=== PATIENT | female | born 1955 | race African-American/Black ===

== ENCOUNTER 2018-03-14 09:56 | Inpatient (IN) ==
[2018-03-14] MEDS ORDERED: amLODIPine 10 MG Tablet PO ONE (10:21)
[2018-03-14] MEDS ORDERED: hydroCHLOROthiazide 25 MG Tablet PO ONE (10:28)
--- NOTE | 2018-03-14 10:36 | ED ---
HPI General Chief complaint: Hypertension Stated complaint: High BP/sugar Time Seen by Provider: 03/14/18 10:12 Source: patient and family Mode of arrival: wheelchair Limitations: no limitations History of Present Illness MD complaint: Headache Onset (ago): day(s) (3) Location: head (Vertex of the scalp) Radiation: non-radiation Quality: other (Pressure) Pain Consistency: constant Relieving factors: other (Aleve give some relief) Exacerbating factors: none Associated symptoms: nausea/vomiting and other (Weakness) Treatments prior to arrival: NSAID Related Data Home Medications Medication Instructions Recorded Confirmed aspirin [Aspirin Low Dose] 81 mg PO DAILY 03/14/18 03/14/18 atorvastatin 40 mg PO DAILY 03/14/18 03/14/18 insulin degludec [Tresiba 22 unit SUB-Q DAILY 03/14/18 03/14/18 FlexTouch U-100] Previous Rx's Medication Instructions Recorded amlodipine 10 mg PO DAILY #90 tab 03/14/18 azithromycin [Zithromax Z-Cornelio] See Label Instructions .ROUTE 03/14/18 .COMPLEX #6 tab hydrochlorothiazide 0 mg PO DAILY #90 cap 03/14/18 hydrochlorothiazide 25 mg PO DAILY #90 tab 03/14/18 losartan 50 mg PO DAILY #90 tab 03/14/18 losartan 100 mg PO DAILY #90 tab 03/14/18 Allergies Allergy/AdvReac Type Severity Reaction Status Date / Time povidone-iodine Allergy Severe HIVES,SWELLING Verified 03/14/18 10:03 AND ITCHING Review of Systems ROS: all other systems reviewed are negative [facility] Medical History Medical History Hypertension (Chronic) Diabetes (Chronic) Surgical History Surgical History No history of previous surgery (Acute) Social History Social History Substance History: No History of Abuse Second Hand Smoke Exposure: No Smoking Status: Never smoker Tobacco Type: Cigarettes How Often Do You Have a Drink Containing Alcohol: Monthly or less Recent Travel in [facility] within the Last 8 Weeks: No Recent Out of Country Travel within the Last 8 Weeks: No Immunization History Tetanus Immunization: <5 Years Tetanus Immunization Year if Known: 2016 Hx Influenza Vaccine This Season: Yes Exam Const General: cooperative, healthy appearing, comfortable, no acute distress, well developed and well groomed Orientation: alert, awake and oriented x3 Other: On direct confrontation, her neurological exam shows full and equal muscle strength. However, she requires her family's assistance to get out of the car, sit up, etc. HENMT Head: normal to inspection, normocephalic, atraumatic and scalp tenderness ( Tender at the vertex of the scalp) Eyes Alignment and Position: alignment normal Conjunctivae: conjunctivae normal Sclera: sclerae normal EOM: EOM intact bilaterally Neck Neck: normal visual inspection and full ROM Chest Chest: normal inspection of the chest Resp Effort & Inspection: normal respiratory effort and able to speak in complete sentences Cardio Rate: regular rate Rhythm: regular rhythm Heart Sounds: S1 normal and S2 normal Back/Spine/Pelvis Cervical Spine: cervical ROM normal Thoracic/Lumbar Spine: thoraco-lumbar ROM normal Skin General: no rashes or lesions noted, turgor normal and dry skin Neuro General: alert, awake, oriented x3, moves all extremities and CN's II-XI intact bilaterally Extrem General: normal to inspection and full ROM Psych Appearance: grossly normal Mental Status: mental status grossly normal Speech and Movement: speech and movement normal Mood: congruent mood Affect: normal affect Attitude: cooperative Thought Process: normal Thought Content: normal Judgment: judgment good Course Hospital Course: The patient was treated in the emergency department with Compazine and Benadryl for her headache and with HCTZ, losartan and amlodipine for her blood pressure. Her diastolic blood pressure has come down to about 100. The patient states that she feels well enough to go home. I have given her prescriptions for HCTZ , losartan and amlodipine. Initial Documented Vital Signs Temperature 97.8 F 03/14/18 09:57 Pulse Rate 92 H 03/14/18 09:57 Respiratory Rate 16 03/14/18 09:57 Blood Pressure 216/107 H 03/14/18 09:57 Pulse Oximetry 97 03/14/18 09:57 Last Documented Vital Signs Temperature 97.8 F 03/14/18 09:57 Pulse Rate 85 03/14/18 12:29 Respiratory Rate 16 03/14/18 12:29 Blood Pressure 223/103 H 03/14/18 12:29 Pulse Oximetry 987 H 03/14/18 10:22 Medical Decision Making MDM Narrative Medical decision making narrative: This is a patient with a history of hypertension and diabetes who has been noncompliant with her antihypertensive for the last couple of weeks who presents with chief complaint of weakness, headache and nausea/vomiting. Onset of symptoms was 3 days ago. Her neurological exam is intact. She has full and equal muscle strength. Yet, she has to be assisted from a lying to a sitting position for a lung exam. I suspect a component of secondary gain. However, the patient is hypertensive. I have ordered her usual antihypertensive medications. I am treating her headache with IV Compazine and Benadryl. I have ordered laboratory and radiographic studies to rule out hypertensive emergency. I will also give the patient a Z-Cornelio because of the radiologist interpretation of her chest x-ray. She is a very poor historian but does complain of weakness. Medical Screen Exam Complete: Yes Emergency Medical Condition: Yes Differential Diagnosis Differential Diagnosis: Differential diagnosis of headache includes but is not limited to migraine, muscle contraction headache, brain tumor, brain bleed Lab Data Lab results reviewed: Yes I reviewed the patient's lab results. Result diagrams: 03/14/18 10:43 03/14/18 10:43 Lab Results 03/14/18 03/14/18 03/14/18 Range/Units 10:11 10:43 10:43 CBC w Diff Auto diff final WBC 12.9 H (4.0-11.0) th/mm3 RBC 4.78 (4.00-5.30) mil/mm3 Hgb 14.8 (11.6-15.3) gm/dL POC Hgb (Calc) ND Hct 42.9 (35.0-46.0) % POC Hct ND MCV 89.8 (80.0-100.0) fL MCH 30.9 (27.0-34.0) pg MCHC 34.4 (32.0-36.0) % RDW 12.5 (11.6-17.2) % Plt Count 353 (150-450) th/mm3 MPV 8.6 (7.0-11.0) fL Neut % (Auto) 82.8 H (16.0-70.0) % Lymph % (Auto) 11.4 (9.0-44.0) % [place] % (Auto) 4.4 (0.0-8.0) % Eos % (Auto) 0.0 (0.0-4.0) % Baso % (Auto) 1.4 (0.0-2.0) % Neut # (Auto) 10.6 H (1.8-7.7) th/mm3 Lymph # (Auto) 1.5 (1.0-4.8) th/mm3 [place] # (Auto) 0.6 (0.0-0.9) th/mm3 Eos # (Auto) 0.0 (0.0-0.4) th/mm3 Baso # (Auto) 0.2 (0.0-0.2) th/mm3 WBC Differential . Differential Comment . POC Sodium 139 (137-144) mmol/L Sodium 139 (136-145) meq/L POC Potassium 4.4 (3.6-5.0) mmol/L Potassium 4.3 (3.5-5.1) meq/L POC Chloride 103 (102-111) mmol/L Chloride 103 (98-107) meq/L Carbon Dioxide 25.2 (21.0-32.0) meq/L Anion Gap 11 (5-15) meq/L POC BUN 31 H (5-21) mg/dL BUN 25 H (7-18) mg/dL Creatinine 1.39 H (0.50-1.00) mg/dL POC Creatinine 1.4 H (0.6-1.3) mg/dL Estimated GFR 47 L (>89) mL/min POC Glucose 174 H 185 H (68-110) mg/dl Random Glucose 181 H (74-106) mg/dL Calcium 9.5 (8.5-10.1) mg/dL Total Bilirubin 0.7 (0.2-1.0) mg/dL AST 55 H (15-37) U/L ALT 28 (10-53) U/L Alkaline Phosphatase 88 (45-117) U/L Troponin I Less than 0.02 L (0.02-0.05) ng/mL Total Protein 8.1 (6.4-8.2) g/dL Albumin 3.9 (3.4-5.0) g/dL Imaging Data Attestation: I personally reviewed and interpreted this imaging study as follows : Radiologist's impression: Chest X-Ray 03/14/18 10:22 CONCLUSION: Mild streaky right base parenchymal opacity. ECG Data EKG Prior to Arrival: No Attestation: I personally reviewed and interpreted this ECG as follows: (EKG shows a sinus rhythm with a rate of 82. No STT wave changes.) Discharge Plan Discharge Disposition Patient Disposition: 01 Discharge Home Discharge Condition Condition: Stable Discharge Order Discharge Orders: Discharge Order (Routine); Ordered 03/14/18 Ordered By: Ruba Mcqueen Discharge Details Diagnosis: Hypertension, Non-compliance Physicians Team ED Provider: Ruba Mcqueen Primary Care Provider: Shital Olson Rxs /Orders / Referrals /Forms Prescriptions: New amlodipine 10 mg tablet 10 mg PO DAILY Qty: 90 RF: 0 hydrochlorothiazide 25 mg tablet 25 mg PO DAILY Qty: 90 RF: 0 losartan 100 mg tablet 100 mg PO DAILY Qty: 90 RF: 0 azithromycin [Zithromax Z-Cornelio] 250 mg tablet See Label Instructions .ROUTE .COMPLEX Qty: 6 RF: 0 Continue losartan 50 mg Tablet 50 mg PO DAILY Qty: 90 RF: 0 hydrochlorothiazide 12.5 mg Capsule PO DAILY Qty: 90 RF: 0 No Action atorvastatin 40 mg Tablet 40 mg PO DAILY RF: 0 aspirin [Aspirin Low Dose] 81 mg Tablet,Delayed Release (Dr/Ec) 81 mg PO DAILY RF: 0 insulin degludec [Tresiba FlexTouch U-100] 100 unit/mL (3 mL) Insulin Pen 22 unit SUB-Q DAILY RF: 0 Discharge Instructions Patient Printed Instructions: Acute Headache (DC), Hypertension (ED) Discharge Interventions Interventions: Vital Signs Last Done: 03/14/18 10:21 Status ED Status: Ready for Discharge
--- NOTE | 2018-03-14 10:40 | XR ---
EXAM DATE: 03/14/2018 10:35 AM EDT AGE/SEX: 62 years / Female INDICATIONS: High blood pressure, weakness. CLINICAL DATA: This is the patient's initial encounter. Patient reports that signs and symptoms have been present for 3 days and indicates a pain score of 0/10. MEDICAL/SURGICAL HISTORY: Hypertension. Diabetes mellitus type II. None. COMPARISON: No prior exams available for comparison. FINDINGS: Minimal streaky parenchymal opacity at the right lung base. No evidence of effusion. Cardiac contours are satisfactory for technique and projection. CONCLUSION: Mild streaky right base parenchymal opacity. Electronically signed by: El Yoo MD 03/14/2018 10:39 AM EDT
[2018-03-14 10:48] LABS: Baso # (Auto) 0.2 th/mm3 (0.0-0.2); Baso % (Auto) 1.4 % (0.0-2.0); Hematocrit 42.9 % (35.0-46.0); Hemoglobin 14.8 gm/dL (11.6-15.3); Lymph # (Auto) 1.5 th/mm3 (1.0-4.8); Lymph % (Auto) 11.4 % (9.0-44.0); Mean Corpuscular HGB Conc 34.4 % (32.0-36.0); Mean Corpuscular Hemoglobin 30.9 pg (27.0-34.0); Mean Corpuscular Volume 89.8 fL (80.0-100.0); Mean Platelet Volume 8.6 fL (7.0-11.0); Mono # (Auto) 0.6 th/mm3 (0.0-0.9); Mono % (Auto) 4.4 % (0.0-8.0); Neut # (Auto) 10.6 th/mm3 (1.8-7.7); Neut % (Auto) 82.8 % (16.0-70.0); Platelet Count 353 th/mm3 (150-450); Red Blood Count 4.78 mil/mm3 (4.00-5.30); Red Cell Distribution Width 12.5 % (11.6-17.2); White Blood Count 12.9 th/mm3 (4.0-11.0)
[2018-03-14 12:02] LABS: Alanine Aminotransferase 28 U/L (10-53)
[2018-03-14 12:05] LABS: Alkaline Phosphatase 88 U/L (45-117); Total Protein 8.1 g/dL (6.4-8.2)
[2018-03-14 12:06] LABS: Albumin 3.9 g/dL (3.4-5.0); Anion Gap 11 meq/L (5-15); Aspartate Aminotransferase 55 U/L (15-37); Blood Urea Nitrogen 25 mg/dL (7-18); Calcium 9.5 mg/dL (8.5-10.1); Carbon Dioxide 25.2 meq/L (21.0-32.0); Chloride 103 meq/L (98-107); Glomerular Filtration Rate 47 mL/min (>89); Glucose,Random 181 mg/dL (74-106); Sodium 139 meq/L (136-145)
[2018-03-14 12:07] LABS: Potassium 4.3 meq/L (3.5-5.1)
[2018-03-14] MEDS ORDERED: Bisacodyl 10 MG Supp RECTAL PRN (13:49)
--- NOTE | 2018-03-14 17:10 | P.HP ---
History of Present Illness Service: Hospitalist Primary Care Physician: Shital Olson MD Chief Complaint: Headache, hypertension History of Present Illness: Ms. Pena is a pleasant 62 year old female with a history of hypertension who presented to the ED on 03/14/2018 due to 3 day duration of headache and some dizziness. Patient appears very drowsy because she took a Benadryl. However, she is able to give appropriate answers. She admits not taking any BP meds for about two weeks. She denies any chest pain, shortness of breath, fever, chills. Denies any changes in bowel or bladder habits. She was started on some of her home meds in the ED. PMH: Hypertension PSH: No major surgery in the past Social history: Does not smoke. Drinks socially. Family history: No family history of heart disease, Alzheimer's or Parkinson's. - Diagnosis (1) Hypertensive urgency Review of Systems All other systems reviewed negative except as stated in HPI [facility] - History History Provided By: Patient - Medical History Medical History: Medical History (Last Updated 03/14/18 @ 10:32 by Ruba Mcqueen) Hypertension Diabetes - Surgical History Surgical History: Surgical History (Last Updated 03/14/18 @ 10:21 by Kate Matos RN) No history of previous surgery - Tobacco History Second Hand Smoke Exposure: No Tobacco Use In Past 30 Days: No Smoking Status: Never smoker Tobacco Type: Cigarettes - Alcohol History How Often Do You Have a Drink Containing Alcohol: Monthly or less - Substance Use History Substance History: No History of Abuse - Travel History Recent Travel in the [place] Within the Last 8 Weeks: No Recent Travel Out of the Country Within the Last 8 Weeks: No - Immunization History Tetanus Immunization: <5 Years Tetanus Immunization Year if Known: 2016 Hx Influenza Vaccine This Season: Yes Medications and Allergies Active Medications: Active Medications Acetaminophen (Tylenol) 650 mg PO Q4H PRN PRN Reason: Headache, fever, pain 1-5 Al Hydroxide/Mg Hydroxide (Milk Of Magnesia Liq) 30 ml PO Q12H PRN PRN Reason: Mild Constipation Bisacodyl (Dulcolax Supp) 10 mg RECTAL DAILY PRN PRN Reason: SEVERE CONSITIPATION Nicardipine HCl 25 mg/ Sodium (Chloride) 260 mls @ 52 mls/hr IV.CONT TITRATE PRN; Protocol PRN Reason: Per Protocol Lactulose (Lactulose Liq) 30 ml PO DAILY PRN PRN Reason: SEVERE CONSITIPATION Levofloxacin (Levaquin) 750 mg PO Q2D@1100 LISS Ondansetron HCl (Zofran Inj) 4 mg IV.PUSH Q6H PRN PRN Reason: NAUSEA OR VOMITING Sennosides (Senokot) 17.2 mg PO Q12H PRN PRN Reason: Moderate Constipation Sodium Chloride (Ns Flush) 2 ml IV.FLUSH UNSCH PRN PRN Reason: FLUSH AFTER USING IV ACCESS Last Admin: 03/14/18 10:51 Dose: 2 ml Allergies Allergy/AdvReac Type Severity Reaction Status Date / Time povidone-iodine Allergy Severe HIVES,SWELLING Verified 03/14/18 10:03 AND ITCHING azithromycin Allergy Itching Verified 03/14/18 13:36 [From [employer]] Home Medications Medication Instructions Recorded Confirmed Type aspirin [Aspirin Low Dose] 81 mg PO DAILY 03/14/18 03/14/18 History atorvastatin 40 mg PO DAILY 03/14/18 03/14/18 History insulin degludec [Tresiba 22 unit SUB-Q DAILY 03/14/18 03/14/18 History FlexTouch U-100] Exam Vital signs: Vital Signs 03/14/18 09:57 03/14/18 10:21 03/14/18 10:22 Temperature 97.8 F Pulse Rate 92 H 87 85 Respiratory Rate 16 16 Blood Pressure 216/107 H 224/113 H Pulse Oximetry 97 98 987 H 03/14/18 11:38 03/14/18 12:29 03/14/18 12:57 Temperature Pulse Rate 85 86 Respiratory Rate 16 16 Blood Pressure 245/113 H 223/103 H 218/109 H Pulse Oximetry 96 03/14/18 15:00 03/14/18 15:03 03/14/18 15:11 Temperature Pulse Rate 90 90 Respiratory Rate 16 6 L 15 Blood Pressure 218/106 H 202/100 H Pulse Oximetry 97 03/14/18 15:57 03/14/18 16:00 Temperature Pulse Rate 86 84 Respiratory Rate 8 L 9 L Blood Pressure 221/117 H 228/95 H Pulse Oximetry 99 99 Intake & Output 03/13/18 03/14/18 03/14/18 18:59 06:59 18:59 Weight 63.8 kg Narrative: GENERAL: This is a well-nourished, well-developed patient, in no apparent distress. SKIN: No rashes, ecchymoses or lesions. Warm and dry. HEAD: Atraumatic. Normocephalic. No temporal or scalp tenderness. EYES: Pupils equal round and reactive. No injection or drainage. ENT: Nose without bleeding, purulent drainage or septal hematoma. Airway patent. NECK: Trachea midline. No lymphadenopathy. Supple, nontender, no meningeal signs. CARDIOVASCULAR: Regular rate and rhythm without murmurs, gallops, or rubs. No JVD. RESPIRATORY: Clear to auscultation. Breath sounds equal bilaterally. No wheezes , rales, or rhonchi. GASTROINTESTINAL: Abdomen soft, non-tender, nondistended. No guarding. MUSCULOSKELETAL: Extremities without clubbing, cyanosis, or edema. NEUROLOGICAL: Drowsy but wakes up on verbal commands. Cranial nerves II through XII intact. No focal neurological deficits. Normal speech. Results - Labs CBC & Chem 7: 03/14/18 10:43 03/14/18 10:43 Labs: Laboratory Results - last 24 hr 03/14/18 03/14/18 03/14/18 10:11 10:43 10:43 CBC w Diff Auto diff final WBC 12.9 H RBC 4.78 Hgb 14.8 POC Hgb (Calc) ND Hct 42.9 POC Hct ND MCV 89.8 MCH 30.9 MCHC 34.4 RDW 12.5 Plt Count 353 MPV 8.6 Neut % (Auto) 82.8 H Lymph % (Auto) 11.4 [place] % (Auto) 4.4 Eos % (Auto) 0.0 Baso % (Auto) 1.4 Neut # (Auto) 10.6 H Lymph # (Auto) 1.5 [place] # (Auto) 0.6 Eos # (Auto) 0.0 Baso # (Auto) 0.2 WBC Differential . Differential Comment . POC Sodium 139 Sodium 139 POC Potassium 4.4 Potassium 4.3 POC Chloride 103 Chloride 103 Carbon Dioxide 25.2 Anion Gap 11 POC BUN 31 H BUN 25 H Creatinine 1.39 H POC Creatinine 1.4 H Estimated GFR 47 L POC Glucose 174 H 185 H Random Glucose 181 H Calcium 9.5 Total Bilirubin 0.7 AST 55 H ALT 28 Alkaline Phosphatase 88 Troponin I Less than 0.02 L Total Protein 8.1 Albumin 3.9 - Imaging Impressions Chest X-Ray 03/14/18 10:22 CONCLUSION: Mild streaky right base parenchymal opacity. Caprini VTE Risk Assessment Caprini VTE Risk Assessment: No/Low Risk (score <= 1) Caprini Risk Assessment Model: Point Value = 1 Point Value = 2 Point Value = 3 Point Value = 5 Age 41-60 Minor surgery BMI > 25 kg/m2 Swollen legs Varicose veins or History of unexplained or recurrent spontaneous Oral contraceptives or hormone replacement Sepsis (< 1 month) Serious lung disease, including pneumonia (< 1 month) Abnormal pulmonary function Acute myocardial infarction Congestive heart failure (< 1 month) History of inflammatory bowel disease Medical patient at bed rest Age 61-74 Arthroscopic surgery Major open surgery (> 45 min) Laparoscopic surgery (> 45 min) Malignancy Confined to bed (> 72 hours) Immobilizing plaster cast Central venous access Age >= 75 History of VTE Family history of VTE Factor V Leiden Prothrombin [id number] Lupus anticoagulant Anticardiolipin antibodies Elevated serum homocysteine Heparin-induced thrombocytopenia Other congenital or acquired thrombophilia Stroke (< 1 month) Elective arthroplasty Hip, pelvis, or leg fracture Acute spinal cord injury (< 1 month) Prophylaxis Regimen: Total Risk Factor Score Risk Level Prophylaxis Regimen 0-1 Low Early ambulation 2 Moderate Order ONE of the following: *Sequential Compression Device (SCD) *Heparin 5000 units SQ BID 3-4 Higher Order ONE of the following medications: *Heparin 5000 units SQ TID *Enoxaparin/Lovenox 40 mg SQ daily (WT < 150 kg, CrCl > 30 mL/min) *Enoxaparin/Lovenox 30 mg SQ daily (WT < 150 kg, CrCl > 10-29 mL/min) *Enoxaparin/Lovenox 30 mg SQ BID (WT < 150 kg, CrCl > 30 mL/min) AND/OR *Sequential Compression Device (SCD) 5 or more Highest Order ONE of the following medications: *Heparin 5000 units SQ TID (Preferred with Epidurals) *Enoxaparin/Lovenox 40 mg SQ daily (WT < 150 kg, CrCl > 30 mL/min) *Enoxaparin/Lovenox 30 mg SQ daily (WT < 150 kg, CrCl > 10-29 mL/min) *Enoxaparin/Lovenox 30 mg SQ BID (WT < 150 kg, CrCl > 30 mL/min) AND *Sequential Compression Device (SCD) Assessment and Plan - Assessment (1) Hypertensive urgency Code(s): I16.0 - Hypertensive urgency Status: Acute - Plan Ms. Pena is a 62 year old female with a history of HTN who presents to the ED on 03/14/2018 due to 3 day duration of headache and some dizziness. She has not taken BP meds for two weeks. Hypertensive urgency - Patient's initial BP was in the 240s systolic. - ED started patient on her home medications. - BP decreased to around 200 systolic. However, it started to going up again - We will start patient on Nicardipine drip. - Resume home meds tomorrow as Nicardipine drip is weaned off. Acute kidney injury - Could also be CKD due to HTN, DM - Creatinine 1.39. Will repeat BMP. Diabetes mellitus - Patient takes Tresiba (Degludec). - Currently on sliding scale insulin. - She will likely need Levemir while she is in the hospital. Will start Levemir 10 u HS Possible right sided pneumonia - WBC 12.9. CXR shows right sided streaks. - Levaquin 750mg Q2Day X 3 dosages. Full code. SCDs.
[2018-03-14] MEDS: niCARdipine Inj 25 MG in Sodium Chlor 0.9% Inj 250 ML IV.CONT PRN ×3 (17:20→23:46)
[2018-03-14] MEDS: levoFLOXacin 750 MG Tablet PO SCH (17:20)
[2018-03-14] MEDS: Acetaminophen 325 MG Tablet PO PRN (17:51)
[2018-03-14] MEDS ORDERED: Dextrose 50% in Water 50 ML Vial IV.PUSH PRN (21:08)
--- NOTE | 2018-03-14 23:28 | ECG ---
Date Performed: 03/14/2018 Time Performed: 10:32:56 PTAGE: 62 years EKG: Sinus rhythm WITH SHORT OR INTERVAL BORDERLINE ECG PREVIOUS TRACING : 03/20/1994 08.06 Since the previous tracing, no significant change noted DOCTOR: Yoan Valentine Interpretating Date/Time 03/14/2018 23:27:10
[2018-03-15] MEDS: niCARdipine Inj 25 MG in Sodium Chlor 0.9% Inj 250 ML IV.CONT PRN ×6 (03:21→20:11)
[2018-03-15] MEDS: Insulin NovoLIN Regular Correctional Sugar Inj SQ SCH ×5 (03:34→21:25)
[2018-03-15 06:33] LABS: Baso % (Auto) 0.2 % (0.0-2.0); Eos % (Auto) 0.1 % (0.0-4.0); Hematocrit 39.6 % (35.0-46.0); Hemoglobin 13.1 gm/dL (11.6-15.3); Lymph # (Auto) 1.5 th/mm3 (1.0-4.8); Lymph % (Auto) 11.1 % (9.0-44.0); Mean Corpuscular HGB Conc 33.2 % (32.0-36.0); Mean Corpuscular Hemoglobin 30.5 pg (27.0-34.0); Mean Corpuscular Volume 92.1 fL (80.0-100.0); Mean Platelet Volume 8.9 fL (7.0-11.0); Mono # (Auto) 0.7 th/mm3 (0.0-0.9); Mono % (Auto) 4.9 % (0.0-8.0); Neut # (Auto) 11.3 th/mm3 (1.8-7.7); Neut % (Auto) 83.7 % (16.0-70.0); Platelet Count 295 th/mm3 (150-450); Red Blood Count 4.29 mil/mm3 (4.00-5.30); White Blood Count 13.5 th/mm3 (4.0-11.0)
[2018-03-15 06:37] LABS: Potassium 3.6 meq/L (3.5-5.1)
[2018-03-15 06:43] LABS: Calcium 8.7 mg/dL (8.5-10.1)
[2018-03-15 06:44] LABS: Carbon Dioxide 24.6 meq/L (21.0-32.0)
[2018-03-15] MEDS: Acetaminophen 325 MG Tablet PO PRN ×2 (08:53→21:38)
[2018-03-15] MEDS: Sod Chloride 0.9% Inj 1,000 ML IV.CONT SCH ×2 (12:10→23:12)
--- NOTE | 2018-03-15 12:13 | P.PNIM ---
Subjective Interval history: The pt said that she felt dizzy. She did not have any other acute complaints. Discussed with nursing. Physical Exam Vital signs: Vital Signs 03/14/18 12:29 03/14/18 12:57 03/14/18 15:00 Temperature Pulse Rate 85 86 Respiratory Rate 16 16 16 Blood Pressure 223/103 H 218/109 H 218/106 H Pulse Oximetry 96 03/14/18 15:03 03/14/18 15:11 03/14/18 15:57 Temperature Pulse Rate 90 90 86 Respiratory Rate 6 L 15 8 L Blood Pressure 202/100 H 221/117 H Pulse Oximetry 97 99 03/14/18 16:00 03/14/18 19:20 03/14/18 20:00 Temperature Pulse Rate 84 96 H Respiratory Rate 9 L 17 Blood Pressure 228/95 H 169/83 H Pulse Oximetry 99 97 98 03/15/18 00:00 03/15/18 04:00 03/15/18 07:00 Temperature 98.8 F 97.5 F L Pulse Rate 92 H 94 H 90 Respiratory Rate 17 23 17 Blood Pressure 144/66 H 139/65 160/80 H Pulse Oximetry 98 96 97 03/15/18 08:00 03/15/18 09:00 03/15/18 10:00 Temperature Pulse Rate 92 H 90 90 Respiratory Rate 11 L 6 L 21 Blood Pressure 138/63 159/78 H 162/74 H Pulse Oximetry 99 97 98 Intake & Output 03/14/18 03/15/18 03/15/18 18:59 06:59 18:59 Intake Total 480 / 480 760 / 760 Output Total 0 / 0 500 / 500 Balance 480 / 480 260 / 260 Weight 63.8 kg 65.8 kg Intake: IV 760 / 760 Cardene Inj 25 MG In NS Inj 250 760 / 760 ML @ 5 MG/HR 52 mls/hr IV.CONT TITRATE PRN Rx#:[id number] Oral 480 / 480 Output: Urine 0 / 0 500 / 500 Other: # Voids 0 Date of Last Bowel Movement 03/13/18 03/13/18 Narrative: GENERAL: This is a well-nourished, well-developed patient, appears weak. SKIN: No rashes, ecchymoses or lesions. Warm and dry. HEAD: Atraumatic. Normocephalic. No temporal or scalp tenderness. EYES: Pupils equal round and reactive. No injection or drainage. ENT: Nose without bleeding, purulent drainage or septal hematoma. Airway patent. NECK: Trachea midline. No lymphadenopathy. Supple, nontender, no meningeal signs. CARDIOVASCULAR: Regular rate and rhythm without murmurs, gallops, or rubs. No JVD. RESPIRATORY: Clear to auscultation. Breath sounds equal bilaterally. No wheezes , rales, or rhonchi. GASTROINTESTINAL: Abdomen soft, non-tender, nondistended. No guarding. MUSCULOSKELETAL: Extremities without clubbing, cyanosis, or edema. NEUROLOGICAL: Cranial nerves II through XII intact. No focal neurological deficits. Normal speech. Results - Labs CBC & Chem 7: 03/15/18 04:40 03/15/18 04:40 Laboratory Results - last 24 hr 03/14/18 03/14/18 03/15/18 10:43 20:58 03:14 CBC w Diff WBC RBC Hgb Hct MCV MCH MCHC RDW Plt Count MPV Neut % (Auto) Lymph % (Auto) [place] % (Auto) Eos % (Auto) Baso % (Auto) Neut # (Auto) Lymph # (Auto) [place] # (Auto) Eos # (Auto) Baso # (Auto) WBC Differential Differential Comment Sodium 139 Potassium 4.3 Chloride 103 Carbon Dioxide 25.2 Anion Gap 11 BUN 25 H Creatinine 1.39 H Estimated GFR 47 L POC Glucose 229 H 213 H Random Glucose 181 H Calcium 9.5 Total Bilirubin 0.7 AST 55 H Alkaline Phosphatase 88 Troponin I Less than 0.02 L Total Protein 8.1 Albumin 3.9 03/15/18 03/15/18 03/15/18 04:40 04:40 08:23 CBC w Diff Auto diff final WBC 13.5 H RBC 4.29 Hgb 13.1 Hct 39.6 MCV 92.1 MCH 30.5 MCHC 33.2 RDW 12.0 Plt Count 295 MPV 8.9 Neut % (Auto) 83.7 H Lymph % (Auto) 11.1 [place] % (Auto) 4.9 Eos % (Auto) 0.1 Baso % (Auto) 0.2 Neut # (Auto) 11.3 H Lymph # (Auto) 1.5 [place] # (Auto) 0.7 Eos # (Auto) 0.0 Baso # (Auto) 0.0 WBC Differential . Differential Comment . Sodium 137 Potassium 3.6 Chloride 100 Carbon Dioxide 24.6 Anion Gap 12 BUN 32 H Creatinine 1.80 H Estimated GFR 35 L POC Glucose 229 H Random Glucose 229 H Calcium 8.7 D Total Bilirubin AST Alkaline Phosphatase Troponin I Total Protein Albumin Assessment and Plan - Assessment (1) Hypertensive urgency Code(s): I16.0 - Hypertensive urgency Status: Acute - Plan Ms. Pena is a 62 year old female with a history of HTN who presents to the ED on 03/14/2018 due to 3 days duration of headache and some dizziness. She has not taken BP meds for two weeks. Hypertensive urgency - Patient's initial BP was in the 240s systolic. - ED started patient on her home medications. - We started the patient on a nicardipine drip. -Resume amlodipine 10 mg daily. Add labetalol 100 mg BID. Titrate as needed. -wean off Cardene gtt as tolerated. Dizziness Likely s/t above. -treatment as above. -PT/OT evals. Acute kidney injury - Could also be acute on CKD due to HTN, DM -IVFs. -avoid nephrotoxins. -hold ARB and HCTZ. Diabetes mellitus - Patient takes Tresiba (Degludec). - Currently on sliding scale insulin. - She will likely need Levemir while she is in the hospital. Will start Levemir 10 u HS Possible right sided pneumonia - WBC 12.9. CXR shows right sided streaky opacity. - Levaquin 750mg Q2Day X 3 dosages. -check a UA and repeat CXR in AM. PPx: SCDs
[2018-03-15] MEDS: Labetalol 100 MG Tablet PO SCH ×2 (12:17→21:30)
[2018-03-15] MEDS: amLODIPine 10 MG Tablet PO SCH (12:19)
[2018-03-15 18:49] LABS: Bilirubin,Urine Negative (Negative); Clarity,Urine Slightly Cloudy (Clear); Color,Urine Yellow (Yellw/Straw); Glucose,Urine (UA) Negative (Negative); Leukocyte Esterase,Urine Negative (Negative); Nitrite,Urine Negative (Negative); PH,Urine 5.5 (5.0-8.5); Specific Gravity,Urine Greater/Equal 1.030 (1.002-1.035); Urobilinogen,Urine 0.2 mg/dL (Less than 2)
[2018-03-15 18:57] LABS: Amorphous Sediment,Urine Moderate /hpf; Squamous Epithelial Cell,Urine 0-5 /hpf (0-5)
[2018-03-15] MEDS: Insulin Detemir Inj 1,000 UNIT/10 ML Vial SQ SCH (21:25)
[2018-03-16] MEDS: Insulin NovoLIN Regular Correctional Sugar Inj SQ SCH ×5 (03:29→20:47)
[2018-03-16 05:30] LABS: Baso # (Auto) 0.1 th/mm3 (0.0-0.2); Baso % (Auto) 0.5 % (0.0-2.0); Hematocrit 39.2 % (35.0-46.0); Hemoglobin 13.1 gm/dL (11.6-15.3); Lymph # (Auto) 1.2 th/mm3 (1.0-4.8); Lymph % (Auto) 7.5 % (9.0-44.0); Mean Corpuscular HGB Conc 33.4 % (32.0-36.0); Mean Corpuscular Hemoglobin 30.6 pg (27.0-34.0); Mean Corpuscular Volume 91.4 fL (80.0-100.0); Mean Platelet Volume 8.3 fL (7.0-11.0); Mono # (Auto) 0.3 th/mm3 (0.0-0.9); Neut # (Auto) 13.8 th/mm3 (1.8-7.7); Platelet Count 306 th/mm3 (150-450); Red Blood Count 4.29 mil/mm3 (4.00-5.30); White Blood Count 15.4 th/mm3 (4.0-11.0)
[2018-03-16 05:39] LABS: Potassium 3.7 meq/L (3.5-5.1)
[2018-03-16 05:42] LABS: Calcium 8.7 mg/dL (8.5-10.1); Carbon Dioxide 23.8 meq/L (21.0-32.0); Magnesium 2.1 mg/dL (1.5-2.5)
--- NOTE | 2018-03-16 06:24 | XR ---
EXAM DATE: 03/16/2018 6:16 AM EDT AGE/SEX: 62 years / Female INDICATIONS: Shortness of breath CLINICAL DATA: This is the patient's subsequent encounter. Patient reports that signs and symptoms h ave been present for 2 days and indicates a pain score of 0/10. MEDICAL/SURGICAL HISTORY: Hypertension. Diabetes mellitus type II. None. COMPARISON: HPO, CHEST 1V SINGLE AP, 03/14/2018. . FINDINGS: A single AP view of the chest demonstrates the lungs to be symmetrically aerated without evidence of mass, infiltrate or effusion. Stable linear atelectasis or scarring at the right lung base. The card iomediastinal contours are unremarkable. Osseous structures are intact. CONCLUSION: The lungs are clear. Electronically signed by: Shaun Troncoso MD 03/16/2018 6:23 AM EDT
[2018-03-16] MEDS: Labetalol 100 MG Tablet PO SCH (08:11)
[2018-03-16] MEDS: amLODIPine 10 MG Tablet PO SCH (08:11)
[2018-03-16] MEDS ORDERED: Labetalol 100 MG Tablet PO ONE (11:18)
--- NOTE | 2018-03-16 12:19 | P.PNIM ---
Subjective Interval history: The pt said that she felt weak in the legs. She was still dizzy. She says she lives with her son. Discussed with nursing. Physical Exam Vital signs: Vital Signs 03/15/18 12:36 03/15/18 13:00 03/15/18 13:05 Temperature Pulse Rate 96 H 94 H Respiratory Rate 25 H 19 Blood Pressure 165/75 H Pulse Oximetry 99 99 100 03/15/18 13:07 03/15/18 14:00 03/15/18 15:00 Temperature Pulse Rate 86 86 Respiratory Rate 17 23 Blood Pressure 133/85 Pulse Oximetry 03/15/18 15:45 03/15/18 16:00 03/15/18 17:00 Temperature Pulse Rate 86 84 80 Respiratory Rate 16 12 8 L Blood Pressure 157/78 H Pulse Oximetry 03/15/18 17:01 03/15/18 17:30 03/15/18 18:00 Temperature Pulse Rate 80 80 80 Respiratory Rate 13 14 Blood Pressure 151/75 H 158/73 H Pulse Oximetry 03/15/18 18:18 03/15/18 19:10 03/15/18 20:00 Temperature Pulse Rate 80 70 Respiratory Rate 20 16 Blood Pressure 148/70 H 141/70 H Pulse Oximetry 99 03/15/18 20:17 03/15/18 20:30 03/15/18 20:45 Temperature 97.5 F L Pulse Rate 74 74 74 Respiratory Rate 17 16 18 Blood Pressure 148/70 H 151/72 H 149/71 H Pulse Oximetry 03/15/18 21:00 03/15/18 21:15 03/15/18 21:30 Temperature Pulse Rate 78 74 82 Respiratory Rate 17 20 25 H Blood Pressure 138/69 148/66 H 153/73 H Pulse Oximetry 03/15/18 21:45 03/15/18 22:00 03/15/18 22:15 Temperature Pulse Rate 80 78 74 Respiratory Rate 23 21 14 Blood Pressure 149/75 H 151/85 H Pulse Oximetry 03/15/18 22:30 03/15/18 22:45 03/15/18 23:00 Temperature Pulse Rate 74 70 68 Respiratory Rate 18 20 19 Blood Pressure 151/81 H 144/76 H 134/76 Pulse Oximetry 03/15/18 23:05 03/15/18 23:15 03/15/18 23:30 Temperature Pulse Rate 68 68 68 Respiratory Rate 18 17 17 Blood Pressure 128/76 139/74 141/75 H Pulse Oximetry 03/16/18 00:00 03/16/18 00:30 03/16/18 01:00 Temperature Pulse Rate 74 68 68 Respiratory Rate 12 14 14 Blood Pressure 137/69 143/64 H 135/63 Pulse Oximetry 03/16/18 02:00 03/16/18 03:00 03/16/18 04:00 Temperature 98.7 F Pulse Rate 72 70 72 Respiratory Rate 15 15 19 Blood Pressure 144/62 H 149/72 H 142/79 H Pulse Oximetry 03/16/18 05:00 03/16/18 05:41 03/16/18 06:00 Temperature Pulse Rate 78 78 74 Respiratory Rate 22 13 17 Blood Pressure 154/79 H 157/75 H 158/72 H Pulse Oximetry 100 03/16/18 07:00 03/16/18 07:38 03/16/18 07:59 Temperature Pulse Rate 74 74 76 Respiratory Rate 18 14 20 Blood Pressure 171/81 H 159/75 H Pulse Oximetry 03/16/18 08:00 03/16/18 08:59 03/16/18 09:00 Temperature 97.8 F Pulse Rate 78 70 74 Respiratory Rate 28 H 34 H 25 H Blood Pressure 162/80 H Pulse Oximetry 03/16/18 09:59 03/16/18 10:00 Temperature Pulse Rate 70 70 Respiratory Rate 20 22 Blood Pressure 157/73 H Pulse Oximetry Intake & Output 03/15/18 03/16/18 03/16/18 18:59 06:59 18:59 Intake Total 1240 / 1240 1380 / 1380 1260 / 1260 Output Total 450 / 450 Balance 1240 / 1240 930 / 930 1260 / 1260 Weight 69.2 kg Intake: IV 520 / 520 1260 / 1260 1260 / 1260 NS Inj 1,000 ML @ 100 mls/hr IV 1000 / 1000 1000 / 1000 .CONT .Q10H LISS Rx#:[id number] Cardene Inj 25 MG In NS Inj 250 520 / 520 260 / 260 260 / 260 ML @ 5 MG/HR 52 mls/hr IV.CONT TITRATE PRN Rx#:[id number] Oral 720 / 720 120 / 120 Output: Urine Amount (Catheter) 450 / 450 Indwelling Urethral Catheter 450 / 450 Other: Bladder Irrigation Fluid - Amount Drained Indwelling Urethral Catheter 650 Date of Last Bowel Movement 03/13/18 03/13/18 03/13/18 # Bowel Movements 0 Narrative: GENERAL: This is a well-nourished, well-developed patient, appears weak. SKIN: No rashes, ecchymoses or lesions. Warm and dry. HEAD: Atraumatic. Normocephalic. No temporal or scalp tenderness. EYES: Pupils equal round and reactive. No injection or drainage. ENT: Nose without bleeding, purulent drainage or septal hematoma. Airway patent. NECK: Trachea midline. No lymphadenopathy. Supple, nontender, no meningeal signs. CARDIOVASCULAR: Regular rate and rhythm without murmurs, gallops, or rubs. No JVD. RESPIRATORY: Clear to auscultation. Breath sounds equal bilaterally. No wheezes , rales, or rhonchi. GASTROINTESTINAL: Abdomen soft, non-tender, nondistended. No guarding. MUSCULOSKELETAL: Extremities without clubbing, cyanosis, or edema. NEUROLOGICAL: Cranial nerves II through XII intact. Symmetrical weakness in lower extremities. - Urinary Catheter Management Indwelling Urethral Catheter Cath placed during this visit: no Reason for continuing: Acute urinary retention Results - Labs CBC & Chem 7: 03/16/18 05:15 03/16/18 05:15 Laboratory Results - last 24 hr 03/15/18 03/15/18 03/15/18 12:03 18:00 18:22 CBC w Diff WBC RBC Hgb Hct MCV MCH MCHC RDW Plt Count MPV Neut % (Auto) Lymph % (Auto) [place] % (Auto) Eos % (Auto) Baso % (Auto) Neut # (Auto) Lymph # (Auto) [place] # (Auto) Eos # (Auto) Baso # (Auto) WBC Differential Differential Comment Sodium Potassium Chloride Carbon Dioxide Anion Gap BUN Creatinine Estimated GFR POC Glucose 270 H 183 H Random Glucose Calcium Magnesium Troponin I Urine Color Yellow Urine Clarity Slightly cloudy Urine pH 5.5 Ur Specific Hext Greater/equal 1.030 Urine Protein 100 H Urine Glucose (UA) Negative Urine Ketones Negative Urine Occult Blood Trace Urine Nitrate Negative Urine Bilirubin Negative Urine Urobilinogen 0.2 Ur Leukocyte Esterase Negative Ur Squamous Epith Cells 0-5 Amorphous Sediment Moderate H Micro UA Comment Cath-culture not ind Ur Microscopic Review Not Reportable Urine Culture Comments Cath-cult not ind 03/15/18 03/16/18 03/16/18 20:49 03:25 05:15 CBC w Diff Auto diff final WBC 15.4 H RBC 4.29 Hgb 13.1 Hct 39.2 MCV 91.4 MCH 30.6 MCHC 33.4 RDW 12.0 Plt Count 306 MPV 8.3 Neut % (Auto) 90.0 H Lymph % (Auto) 7.5 L [place] % (Auto) 2.0 Eos % (Auto) 0.0 Baso % (Auto) 0.5 Neut # (Auto) 13.8 H Lymph # (Auto) 1.2 [place] # (Auto) 0.3 Eos # (Auto) 0.0 Baso # (Auto) 0.1 WBC Differential . Differential Comment . Sodium Potassium Chloride Carbon Dioxide Anion Gap BUN Creatinine Estimated GFR POC Glucose 203 H 231 H Random Glucose Calcium Magnesium Troponin I Urine Color Urine Clarity Urine pH Ur Specific Hext Urine Protein Urine Glucose (UA) Urine Ketones Urine Occult Blood Urine Nitrate Urine Bilirubin Urine Urobilinogen Ur Leukocyte Esterase Ur Squamous Epith Cells Amorphous Sediment Micro UA Comment Ur Microscopic Review Urine Culture Comments 03/16/18 03/16/18 03/16/18 05:15 05:15 08:21 CBC w Diff WBC RBC Hgb Hct MCV MCH MCHC RDW Plt Count MPV Neut % (Auto) Lymph % (Auto) [place] % (Auto) Eos % (Auto) Baso % (Auto) Neut # (Auto) Lymph # (Auto) [place] # (Auto) Eos # (Auto) Baso # (Auto) WBC Differential Differential Comment Sodium 136 Potassium 3.7 Chloride 102 Carbon Dioxide 23.8 Anion Gap 10 BUN 29 H Creatinine 1.60 H Estimated GFR 40 L POC Glucose 171 H Random Glucose 217 H Calcium 8.7 Magnesium 2.1 Troponin I 0.03 Urine Color Urine Clarity Urine pH Ur Specific Hext Urine Protein Urine Glucose (UA) Urine Ketones Urine Occult Blood Urine Nitrate Urine Bilirubin Urine Urobilinogen Ur Leukocyte Esterase Ur Squamous Epith Cells Amorphous Sediment Micro UA Comment Ur Microscopic Review Urine Culture Comments - Imaging Impressions Chest X-Ray 03/16/18 06:00 CONCLUSION: The lungs are clear. Assessment and Plan - Assessment (1) Hypertensive urgency Code(s): I16.0 - Hypertensive urgency Status: Acute - Plan Ms. Pena is a 62 year old female with a history of HTN who presents to the ED on 03/14/2018 due to 3 days duration of headache and some dizziness. She has not taken BP meds for two weeks. Hypertensive urgency Improved. - Patient's initial BP was in the 240s systolic. -Resume amlodipine 10 mg daily. Increase labetalol to 200 mg BID. Titrate as needed. -d/c Cardene gtt. Dizziness Likely s/t above. -treatment as above. -PT/OT evals. Acute kidney injury - Could also be acute on CKD due to HTN, DM -IVFs. -avoid nephrotoxins. -hold ARB and HCTZ. Diabetes mellitus - Patient takes Tresiba (Degludec). - Currently on sliding scale insulin. -Will start Levemir 10 u HS. Possible right sided pneumonia Repeat CXR unremarkable. UA negative. - WBC 12.9. CXR shows right sided streaky opacity. - Levaquin 750mg Q2Day X 3 dosages. PPx: SCDs
[2018-03-16] MEDS: levoFLOXacin 750 MG Tablet PO SCH (12:51)
[2018-03-16] MEDS: Sod Chloride 0.9% Inj 1,000 ML IV.CONT SCH ×2 (12:51→21:51)
[2018-03-16] MEDS: Acetaminophen 325 MG Tablet PO PRN (15:51)
--- NOTE | 2018-03-16 16:42 | CT ---
EXAM DATE: 03/16/2018 4:34 PM EDT AGE/SEX: 62 years / Female INDICATIONS: Altered mental status CLINICAL DATA: This is the patient's initial encounter. Patient reports that signs and symptoms have been present for 1 day and indicates a pain score of 0/10. MEDICAL/SURGICAL HISTORY: Diabetes. Hypertension. None. RADIATION DOSE: 52.11 CTDI (mGy) COMPARISON: No prior exams available for comparison. TECHNIQUE: CT of the head without contrast. Using automated exposure control and adjustment of the mA and/or kV according to patient size, radiation dose was kept as low as reasonably achievable to ob tain optimal diagnostic quality images. DICOM format image data is available electronically for revi ew and comparison. FINDINGS: Cerebrum: There is a focal area of high attenuation involving the white matter of the right parietal lobe with extension of the high attenuation material into the right lateral ventricle and to a lesse r extent the posterior horn of the left lateral ventricle and temporal horn on the right. The remaind er of the barrios-white matter is normal in attenuation. There is no evidence of sulcal effacement at th is time. No evidence of midline shift. The ventricles appear mildly prominent. Posterior Fossa: The cerebellum and brainstem are intact. The 4th ventricle is midline. The cerebe llopontine angle is unremarkable. Extracranial: The visualized portion of the orbits is intact. Skull: The calvaria is intact. No evidence of skull fracture. CONCLUSION: 1. Acute intraparenchymal hemorrhage involving the right parietal lobe with extension into the ventr icles. There is mild prominence of the ventricles without evidence of sulcal effacement or midline sh ift at this time. These findings were referred to the referring physician Dr. Mejia at 4:40 PM. . Electronically signed by: Sarai Crain MD 03/16/2018 4:41 PM EDT
[2018-03-16] MEDS: niCARdipine Inj 25 MG in Sodium Chlor 0.9% Inj 240 ML IV.CONT PRN ×3 (17:00→23:49)
[2018-03-16 18:10] LABS: Thyroid Stimulating Hormone 1.82 uIU/mL (0.358-3.740)
[2018-03-16] MEDS ORDERED: Acetaminophen 325 MG Tablet PO ONE (20:29)
[2018-03-16] MEDS: Insulin Detemir Inj 1,000 UNIT/10 ML Vial SQ SCH (20:48)
[2018-03-16] MEDS ORDERED: Labetalol 100 MG Tablet PO SCH (21:00)
--- NOTE | 2018-03-16 21:33 | P.EN ---
Brief consult note, full note to follow: 62 yo presented to OSH with hypertensive emergency. Confused today prompting head CT Imaging: CT head with evolving right>left IVH without signs of hydrocephalus A/P: 62 yo with IVH -neuro checks for hydrocephalus watch, notify neurosurgery of any decline -aggressive SBP management (SBP goal <140) -no anticoagulants/antiplatelet medications -recommend CTA head to r/o vascular lesion
[2018-03-17] MEDS: Acetaminophen 325 MG Tablet PO PRN (00:45)
[2018-03-17] MEDS: Insulin NovoLIN Regular Correctional Sugar Inj SQ SCH ×4 (03:38→17:41)
[2018-03-17] MEDS: niCARdipine Inj 25 MG in Sodium Chlor 0.9% Inj 240 ML IV.CONT PRN ×4 (04:37→13:01)
--- NOTE | 2018-03-17 07:17 | P.CONCC ---
History of Present Illness Service: Critical care medicine Consult date: 03/16/18 Requesting Physician: Jefry Mejia Reason for Consult: Critical care management, ICH Primary Care Provider: Shital Olson MD Chief Complaint: Headache, hypertension History of Present Illness: 62-year-old -[place] female with past medical history of hypertension, hyperlipidemia, diabetes who presented to [facility] 03/14 with 3-day history of headache and dizziness. Her blood pressure was in 220/110. She says that she had not been taking her antihypertensive medications because she had run out. She was admitted and treated for hypertensive emergency with Cardene drip. On 03/16 she experienced confusion and CT brain was obtained which demonstrated right intraparenchymal hemorrhage with intraventricular extension. Dr. Mejia discussed case with neurosurgery who recommended holding ASA, BP control <140 mmHg, CTA. Patient will need frequent neurochecks for hydrocephalus as well as monitoring of airway protection, and therefore was transferred to [facility]. She complains of headache, nausea. Review of Systems All other systems reviewed negative except as stated in HPI PMFSH - History History Provided By: Patient - Medical History Medical History: Medical History (Last Reviewed 04/01/18 @ 07:37 by Angela Gonzalez) Diabetes mellitus type 2 in nonobese (Acute) Hyperlipidemia (Acute) Diabetes (Chronic) Hypertension (Chronic) - Surgical History Surgical History: Surgical History (Last Reviewed 04/01/18 @ 07:37 by Angela Gonzalez) No history of previous surgery - Family History Family History: Family History (Last Updated 03/17/18 @ 07:24 by Lauren Chong MD) Other No significant family history - Tobacco History Second Hand Smoke Exposure: No Tobacco Use In Past 30 Days: No Smoking Status: Never smoker Tobacco Type: Cigarettes - Alcohol History How Often Do You Have a Drink Containing Alcohol: 2 to 3 times a week - Substance Use History Substance History: No History of Abuse - Travel History Recent Travel in the [place] Within the Last 8 Weeks: No Recent Travel Out of the Country Within the Last 8 Weeks: No - Immunization History Tetanus Immunization: <5 Years Tetanus Immunization Year if Known: 2016 Hx Influenza Vaccine This Season: Yes Medications and Allergies Active Medications: Active Medications Acetaminophen (Tylenol) 650 mg PO Q4H PRN PRN Reason: Headache, fever, pain 1-5 Last Admin: 03/17/18 00:45 Dose: 650 mg Hydrocodone Bitart/Acetaminophen (Hemlock 5/325) 1 tab PO Q4H PRN PRN Reason: pain Last Admin: 03/17/18 04:19 Dose: 1 tab Al Hydroxide/Mg Hydroxide (Milk Of Magnesia Liq) 30 ml PO Q12H PRN PRN Reason: Mild Constipation Amlodipine Besylate (Norvasc) 10 mg PO DAILY [facility] Last Admin: 03/16/18 08:11 Dose: 10 mg Atorvastatin Calcium (Lipitor) 40 mg PO DAILY [facility] Last Admin: 03/16/18 08:11 Dose: 40 mg Bisacodyl (Dulcolax Supp) 10 mg RECTAL DAILY PRN PRN Reason: SEVERE CONSITIPATION Clonidine HCl (Catapres) 0.1 mg PO Q6H PRN PRN Reason: SBP > 180 AND DBP > 110 Dextrose (D50w Vial) 50 ml IV.PUSH UNSCH PRN PRN Reason: PER HYPOGLYCEMIA PROTOCOL Glucagon (Glucagon Inj) 1 mg OTHER PRN PRN PRN Reason: for Hypoglycemia Protocol Sodium Chloride (Ns Inj) 1,000 mls @ 100 mls/hr IV.CONT .Q10H [facility] Last Admin: 03/16/18 21:51 Dose: 100 mls/hr Nicardipine HCl 25 mg/ Sodium (Chloride) 250 mls @ 50 mls/hr IV.CONT TITRATE PRN; Protocol PRN Reason: Per Protocol Last Titration: 03/17/18 05:36 Dose: 10 mg/hr, 100 mls/hr Insulin Detemir (Levemir Inj) 10 unit SQ HS [facility] Last Admin: 03/16/18 20:48 Dose: Not Given Insulin Human Regular (Novolin R Correctional Sugar Inj) 0 units SQ ACHS AND 3AM LISS; Protocol Last Admin: 03/17/18 03:38 Dose: 1 units Labetalol HCl (Trandate) 200 mg PO BID [facility] Last Admin: 03/16/18 20:41 Dose: 200 mg Lactulose (Lactulose Liq) 30 ml PO DAILY PRN PRN Reason: SEVERE CONSITIPATION Nitroglycerin (Nitrostat Sl) 0.4 mg SL UNSCH X1 PRN PRN Reason: CHEST PAIN Stop: 03/18/18 05:44 Nitroglycerin (Nitrostat Sl) 0.4 mg SL UNSCH X1 PRN PRN Reason: CHEST PAIN Stop: 03/18/18 05:44 Ondansetron HCl (Zofran Inj) 4 mg IV.PUSH Q6H PRN PRN Reason: NAUSEA OR VOMITING Last Admin: 03/16/18 23:48 Dose: 4 mg Sennosides (Senokot) 17.2 mg PO Q12H PRN PRN Reason: Moderate Constipation Sodium Chloride (Ns Flush) 2 ml IV.FLUSH UNSCH PRN PRN Reason: FLUSH AFTER USING IV ACCESS Last Admin: 03/14/18 10:51 Dose: 2 ml Allergies Allergy/AdvReac Type Severity Reaction Status Date / Time povidone-iodine Allergy Severe HIVES,SWELLING Verified 03/25/18 22:56 AND ITCHING azithromycin Allergy Itching Verified 03/25/18 22:56 [From [employer] water systems] Physical Exam Vital signs: Vital Signs 03/16/18 07:38 03/16/18 07:59 03/16/18 08:00 Temperature Pulse Rate 74 76 78 Respiratory Rate 14 20 28 H Blood Pressure 171/81 H 159/75 H Pulse Oximetry 03/16/18 08:59 03/16/18 09:00 03/16/18 09:59 Temperature 97.8 F Pulse Rate 70 74 70 Respiratory Rate 34 H 25 H 20 Blood Pressure 162/80 H 157/73 H Pulse Oximetry 03/16/18 10:00 03/16/18 10:59 03/16/18 11:00 Temperature Pulse Rate 70 72 70 Respiratory Rate 22 23 21 Blood Pressure 161/78 H Pulse Oximetry 03/16/18 11:59 03/16/18 12:00 03/16/18 12:59 Temperature Pulse Rate 70 70 74 Respiratory Rate 23 35 H 24 Blood Pressure 160/79 H 163/72 H Pulse Oximetry 03/16/18 13:00 03/16/18 13:59 03/16/18 14:00 Temperature Pulse Rate 74 76 78 Respiratory Rate 25 H 24 20 Blood Pressure 156/72 H Pulse Oximetry 03/16/18 14:59 03/16/18 15:00 03/16/18 15:59 Temperature Pulse Rate 84 82 68 Respiratory Rate 31 H 30 H Blood Pressure 161/76 H 176/90 H Pulse Oximetry 03/16/18 16:00 03/16/18 16:21 03/16/18 16:44 Temperature Pulse Rate 80 82 Respiratory Rate Blood Pressure 184/88 H Pulse Oximetry 03/16/18 16:45 03/16/18 17:12 03/16/18 17:48 Temperature Pulse Rate 82 Respiratory Rate 29 H Blood Pressure 163/83 H Pulse Oximetry 03/16/18 17:50 03/16/18 18:00 03/16/18 18:13 Temperature Pulse Rate 84 68 70 Respiratory Rate 30 H 19 4 L Blood Pressure 150/81 H 140/71 Pulse Oximetry 97 96 96 03/16/18 18:30 03/16/18 19:00 03/16/18 19:20 Temperature 98.5 F Pulse Rate 70 66 Respiratory Rate 14 21 Blood Pressure 137/64 145/78 H Pulse Oximetry 99 99 98 03/16/18 19:30 03/16/18 19:38 03/16/18 19:39 Temperature Pulse Rate 74 82 78 Respiratory Rate 26 H 20 22 Blood Pressure 145/69 H 149/73 H 151/69 H Pulse Oximetry 97 100 98 03/16/18 19:57 03/16/18 20:00 03/16/18 20:24 Temperature Pulse Rate 72 72 78 Respiratory Rate 24 16 22 Blood Pressure 140/65 152/64 H 145/65 H Pulse Oximetry 03/16/18 20:30 03/16/18 20:45 03/16/18 21:00 Temperature Pulse Rate 72 76 72 Respiratory Rate 16 17 16 Blood Pressure 140/67 140/69 131/69 Pulse Oximetry 03/16/18 21:11 03/16/18 21:15 03/16/18 21:30 Temperature Pulse Rate 72 72 70 Respiratory Rate 20 18 17 Blood Pressure 140/66 148/64 H 132/61 Pulse Oximetry 03/16/18 21:45 03/16/18 21:49 03/16/18 21:55 Temperature Pulse Rate 68 66 74 Respiratory Rate 17 15 22 Blood Pressure 128/66 122/59 L 120/65 Pulse Oximetry 03/16/18 22:00 03/16/18 22:15 03/16/18 22:30 Temperature Pulse Rate 66 64 64 Respiratory Rate 19 18 17 Blood Pressure 124/61 129/65 131/61 Pulse Oximetry 03/16/18 22:45 03/16/18 23:00 03/16/18 23:15 Temperature Pulse Rate 64 66 64 Respiratory Rate 19 19 17 Blood Pressure 129/61 132/61 125/64 Pulse Oximetry 03/16/18 23:30 03/16/18 23:36 03/17/18 01:00 Temperature 98.1 F Pulse Rate 66 66 74 Respiratory Rate 16 16 22 Blood Pressure 131/65 127/67 136/67 Pulse Oximetry 95 03/17/18 01:38 03/17/18 02:00 03/17/18 04:00 Temperature 98.3 F Pulse Rate 73 66 Respiratory Rate 21 17 18 Blood Pressure 138/65 125/59 L Pulse Oximetry 96 97 03/17/18 04:49 03/17/18 06:00 03/17/18 07:00 Temperature Pulse Rate 70 Respiratory Rate 17 17 Blood Pressure 136/64 Pulse Oximetry 95 94 L Intake & Output 03/16/18 03/17/18 03/17/18 18:59 06:59 18:59 Intake Total 1260 / 1260 1750 / 1750 Output Total 700 / 700 325 / 325 Balance 560 / 560 1425 / 1425 Weight 68.2 kg Intake: IV 1260 / 1260 1750 / 1750 NS Inj 1,000 ML @ 100 mls/hr IV 1000 / 1000 1000 / 1000 .CONT .Q10H LISS Rx#:[id number] Cardene Inj 25 MG In NS Inj 240 260 / 260 750 / 750 ML @ 5 MG/HR 50 mls/hr IV.CONT TITRATE PRN Rx#:[id number] Output: Urine 700 / 700 Urine Amount (Catheter) 325 / 325 Indwelling Urethral Catheter 325 / 325 Other: Date of Last Bowel Movement 03/13/18 03/13/18 Weight On Admission 68.2 kg Narrative: GENERAL: Well-nourished, well-developed patient who is laying in ISC bed. SKIN: Warm and dry. HEAD: Atraumatic. Normocephalic. EYES: Pupils equal and round, 2 mm and reactive bilaterally. No scleral icterus. No injection or drainage. ENT: No nasal bleeding or discharge. Mucous membranes pink and moist. NECK: Trachea midline. No JVD. CARDIOVASCULAR: Regular rate and rhythm. 2/6 murmur LLSB. RESPIRATORY: No accessory muscle use. Clear to auscultation. Breath sounds equal bilaterally. On room air. GASTROINTESTINAL: Abdomen soft, non-tender, nondistended. e. MUSCULOSKELETAL: Extremities without clubbing, cyanosis, or edema. No obvious deformities. NEUROLOGICAL: Awake and alert, oriented x3. No obvious cranial nerve deficits, Full EOM. Sensation intact. Normal speech. Strength 5 out of 5 in all extremities. No pronator drift. - Urinary Catheter Management Indwelling Urethral Catheter Cath placed during this visit: no Reason for continuing: Acute urinary retention Assessment and Plan - Problem List (1) Malignant essential hypertension Code(s): I10 - Essential (primary) hypertension Status: Acute (2) Intraparenchymal hemorrhage of brain Code(s): I61.9 - Nontraumatic intracerebral hemorrhage, unspecified Status: Acute (3) KAREN (acute kidney injury) Code(s): N17.9 - Acute kidney failure, unspecified Status: Acute (4) Overweight (BMI 25.0-29.9) Code(s): E66.3 - Overweight Status: Chronic (5) Leukocytosis Code(s): D72.829 - Elevated white blood cell count, unspecified Status: Acute (6) Diabetes Code(s): E11.9 - Type 2 diabetes mellitus without complications Status: Chronic - Assessment and Plan Plan: NEURO: R intraparenchymal hemorrhage with intraventricular extension. Neurochecks every hour to monitor for evidence of hydrocephalus Maintain systolic blood pressure less than 140 per neurosurgery recommendations Aspirin on hold Will order CTA per neurosurgery recs as long as creatine stabilized., otherwise consider MRA to evaluate for vascular abnormality. Neurosurgery consulted. RESP: IS q 1 hour. She is protecting her airway. Continue to monitor CV: Malignant hypertension Hyperlipidemia Continue Norvasc 10 mg p.o. daily, labetalol 200 bid -->increase to q6 hours. Nicardipine drip titrate to maintain SBP <140, currently at 10 mg/hr. Atorvastatin 40 mg p.o. daily GI: Overweight Currently has n.p.o. order. Will evaluate swallow and advance diet as appropriate. FEN/RENAL: Acute kidney injury Will obtain BMP. Monitor intake and output. ID: Leukocytosis Monitor for signs and symptoms of infection HEME: No acute hematologic issues ENDO: Diabetes mellitus Detemir 10 units subcu nightly. Bedside glucose achs with low-dose insulin sliding scale PROPH: SCDs for DVT prophylaxis. Avoid pharmacologic DVT prophylaxis at this time due to intraparenchymal hemorrhage. Stress ulcer prophylaxis is not currently indicated. ACCESS: Peripheral IV providing adequate access Level 3 Consult.
--- NOTE | 2018-03-17 07:50 | P.CONNS ---
History of Present Illness Service: Neurosurgery Consult date: 03/17/18 Reason for Consult: intraventricular hemorrhage Primary Care Provider: Shital Olson MD Chief Complaint: Headache, hypertension History of Present Illness: 62 yo with PMH of HTN transferred from OSH for evaluation of IVH. Patient presented to OSH on 03/14 with complaints of 3 days of headaches. SBP <200s placed on drip. Per OSH report, patient "appeared a little more confused" prompting head CT which demonstrated resolving IVH. Patient reports today with improving headache. denies any neurological symptoms. Review of Systems All other systems reviewed negative except as stated in HPI [facility] - History History Provided By: Patient - Medical History Medical History: Medical History (Last Reviewed 03/16/18 @ 10:36 by Ladan Espinoza) Hypertension Diabetes - Surgical History Surgical History: Surgical History (Last Updated 03/14/18 @ 10:21 by Kate Matos RN) No history of previous surgery - Family History Family History: Family History (Last Updated 03/17/18 @ 07:24 by Lauren Chong MD) Other No significant family history - Tobacco History Second Hand Smoke Exposure: No Tobacco Use In Past 30 Days: No Smoking Status: Never smoker Tobacco Type: Cigarettes - Alcohol History How Often Do You Have a Drink Containing Alcohol: 2 to 3 times a week - Substance Use History Substance History: No History of Abuse - Travel History Recent Travel in the [place] Within the Last 8 Weeks: No Recent Travel Out of the Country Within the Last 8 Weeks: No - Immunization History Tetanus Immunization: <5 Years Tetanus Immunization Year if Known: 2016 Hx Influenza Vaccine This Season: Yes Medications and Allergies Active Medications: Active Medications Acetaminophen (Tylenol) 650 mg PO Q4H PRN PRN Reason: Headache, fever, pain 1-5 Last Admin: 03/17/18 00:45 Dose: 650 mg Hydrocodone Bitart/Acetaminophen ([place] 5/325) 1 tab PO Q4H PRN PRN Reason: pain Last Admin: 03/17/18 04:19 Dose: 1 tab Al Hydroxide/Mg Hydroxide (Milk Of Magnesia Liq) 30 ml PO Q12H PRN PRN Reason: Mild Constipation Amlodipine Besylate (Norvasc) 10 mg PO DAILY [facility] Last Admin: 03/16/18 08:11 Dose: 10 mg Atorvastatin Calcium (Lipitor) 40 mg PO DAILY [facility] Last Admin: 03/16/18 08:11 Dose: 40 mg Bisacodyl (Dulcolax Supp) 10 mg RECTAL DAILY PRN PRN Reason: SEVERE CONSITIPATION Clonidine HCl (Catapres) 0.1 mg PO Q6H PRN PRN Reason: SBP > 180 AND DBP > 110 Dextrose (D50w Vial) 50 ml IV.PUSH UNSCH PRN PRN Reason: PER HYPOGLYCEMIA PROTOCOL Glucagon (Glucagon Inj) 1 mg OTHER PRN PRN PRN Reason: for Hypoglycemia Protocol Sodium Chloride (Ns Inj) 1,000 mls @ 100 mls/hr IV.CONT .Q10H LISS Last Admin: 03/16/18 21:51 Dose: 100 mls/hr Nicardipine HCl 25 mg/ Sodium (Chloride) 250 mls @ 50 mls/hr IV.CONT TITRATE PRN; Protocol PRN Reason: Per Protocol Last Titration: 03/17/18 05:36 Dose: 10 mg/hr, 100 mls/hr Insulin Detemir (Levemir Inj) 10 unit SQ HS [facility] Last Admin: 03/16/18 20:48 Dose: Not Given Insulin Human Regular (Novolin R Correctional Sugar Inj) 0 units SQ ACHS AND 3AM LISS; Protocol Last Admin: 03/17/18 03:38 Dose: 1 units Labetalol HCl (Trandate) 200 mg PO Q6H [facility] Lactulose (Lactulose Liq) 30 ml PO DAILY PRN PRN Reason: SEVERE CONSITIPATION Nitroglycerin (Nitrostat Sl) 0.4 mg SL UNSCH X1 PRN PRN Reason: CHEST PAIN Stop: 03/18/18 05:44 Nitroglycerin (Nitrostat Sl) 0.4 mg SL UNSCH X1 PRN PRN Reason: CHEST PAIN Stop: 03/18/18 05:44 Ondansetron HCl (Zofran Inj) 4 mg IV.PUSH Q6H PRN PRN Reason: NAUSEA OR VOMITING Last Admin: 03/16/18 23:48 Dose: 4 mg Sennosides (Senokot) 17.2 mg PO Q12H PRN PRN Reason: Moderate Constipation Sodium Chloride (Ns Flush) 2 ml IV.FLUSH UNSCH PRN PRN Reason: FLUSH AFTER USING IV ACCESS Last Admin: 03/14/18 10:51 Dose: 2 ml Allergies Allergy/AdvReac Type Severity Reaction Status Date / Time povidone-iodine Allergy Severe HIVES,SWELLING Verified 03/14/18 10:03 AND ITCHING azithromycin Allergy Itching Verified 03/14/18 13:36 [From FX Aligned-Cornelio] Home Medications Medication Instructions Recorded Confirmed Type aspirin [Aspirin Low Dose] 81 mg PO DAILY 03/14/18 03/14/18 History atorvastatin 40 mg PO DAILY 03/14/18 03/14/18 History insulin degludec [Tresiba 22 unit SUB-Q DAILY 03/14/18 03/14/18 History FlexTouch U-100] Exam Vital signs: Vital Signs 03/16/18 07:59 03/16/18 08:00 03/16/18 08:59 Temperature Pulse Rate 76 78 70 Respiratory Rate 20 28 H 34 H Blood Pressure 159/75 H 162/80 H Pulse Oximetry 03/16/18 09:00 03/16/18 09:59 03/16/18 10:00 Temperature 97.8 F Pulse Rate 74 70 70 Respiratory Rate 25 H 20 22 Blood Pressure 157/73 H Pulse Oximetry 03/16/18 10:59 03/16/18 11:00 03/16/18 11:59 Temperature Pulse Rate 72 70 70 Respiratory Rate 23 21 23 Blood Pressure 161/78 H 160/79 H Pulse Oximetry 03/16/18 12:00 03/16/18 12:59 03/16/18 13:00 Temperature Pulse Rate 70 74 74 Respiratory Rate 35 H 24 25 H Blood Pressure 163/72 H Pulse Oximetry 03/16/18 13:59 03/16/18 14:00 03/16/18 14:59 Temperature Pulse Rate 76 78 84 Respiratory Rate 24 20 31 H Blood Pressure 156/72 H 161/76 H Pulse Oximetry 03/16/18 15:00 03/16/18 15:59 03/16/18 16:00 Temperature Pulse Rate 82 68 80 Respiratory Rate 30 H Blood Pressure 176/90 H Pulse Oximetry 03/16/18 16:21 03/16/18 16:44 03/16/18 16:45 Temperature Pulse Rate 82 82 Respiratory Rate Blood Pressure 184/88 H Pulse Oximetry 03/16/18 17:12 03/16/18 17:48 03/16/18 17:50 Temperature Pulse Rate 84 Respiratory Rate 29 H 30 H Blood Pressure 163/83 H 150/81 H Pulse Oximetry 97 03/16/18 18:00 03/16/18 18:13 03/16/18 18:30 Temperature Pulse Rate 68 70 70 Respiratory Rate 19 4 L 14 Blood Pressure 140/71 137/64 Pulse Oximetry 96 96 99 03/16/18 19:00 03/16/18 19:20 03/16/18 19:30 Temperature 98.5 F Pulse Rate 66 74 Respiratory Rate 21 26 H Blood Pressure 145/78 H 145/69 H Pulse Oximetry 99 98 97 03/16/18 19:38 03/16/18 19:39 03/16/18 19:57 Temperature Pulse Rate 82 78 72 Respiratory Rate 20 22 24 Blood Pressure 149/73 H 151/69 H 140/65 Pulse Oximetry 100 98 03/16/18 20:00 03/16/18 20:24 03/16/18 20:30 Temperature Pulse Rate 72 78 72 Respiratory Rate 16 22 16 Blood Pressure 152/64 H 145/65 H 140/67 Pulse Oximetry 03/16/18 20:45 03/16/18 21:00 03/16/18 21:11 Temperature Pulse Rate 76 72 72 Respiratory Rate 17 16 20 Blood Pressure 140/69 131/69 140/66 Pulse Oximetry 03/16/18 21:15 03/16/18 21:30 03/16/18 21:45 Temperature Pulse Rate 72 70 68 Respiratory Rate 18 17 17 Blood Pressure 148/64 H 132/61 128/66 Pulse Oximetry 03/16/18 21:49 03/16/18 21:55 03/16/18 22:00 Temperature Pulse Rate 66 74 66 Respiratory Rate 15 22 19 Blood Pressure 122/59 L 120/65 124/61 Pulse Oximetry 03/16/18 22:15 03/16/18 22:30 03/16/18 22:45 Temperature Pulse Rate 64 64 64 Respiratory Rate 18 17 19 Blood Pressure 129/65 131/61 129/61 Pulse Oximetry 03/16/18 23:00 03/16/18 23:15 03/16/18 23:30 Temperature Pulse Rate 66 64 66 Respiratory Rate 19 17 16 Blood Pressure 132/61 125/64 131/65 Pulse Oximetry 03/16/18 23:36 03/17/18 01:00 03/17/18 01:38 Temperature 98.1 F Pulse Rate 66 74 Respiratory Rate 16 22 21 Blood Pressure 127/67 136/67 Pulse Oximetry 95 03/17/18 02:00 03/17/18 04:00 03/17/18 04:49 Temperature 98.3 F Pulse Rate 73 66 Respiratory Rate 17 18 17 Blood Pressure 138/65 125/59 L Pulse Oximetry 96 97 03/17/18 06:00 03/17/18 07:00 Temperature Pulse Rate 70 Respiratory Rate 17 Blood Pressure 136/64 Pulse Oximetry 95 94 L Intake & Output 03/16/18 03/17/18 03/17/18 18:59 06:59 18:59 Intake Total 1260 / 1260 1750 / 1750 Output Total 700 / 700 325 / 325 Balance 560 / 560 1425 / 1425 Weight 68.2 kg Intake: IV 1260 / 1260 1750 / 1750 NS Inj 1,000 ML @ 100 mls/hr IV 1000 / 1000 1000 / 1000 .CONT .Q10H LISS Rx#:[id number] Cardene Inj 25 MG In NS Inj 240 260 / 260 750 / 750 ML @ 5 MG/HR 50 mls/hr IV.CONT TITRATE PRN Rx#:[id number] Output: Urine 700 / 700 Urine Amount (Catheter) 325 / 325 Indwelling Urethral Catheter 325 / 325 Other: Date of Last Bowel Movement 03/13/18 03/13/18 Weight On Admission 68.2 kg Narrative: E4 Aox3 Cranial nerves intact Follows commands x4 5/5 strength in the UEs and LEs 1/4 reflexes throughout without drift Results - Laboratory Findings CBC and BMP: 03/16/18 05:15 03/16/18 05:15 Abnormal lab findings: Abnormal Labs 03/14/18 03/14/18 03/14/18 10:11 10:43 10:43 WBC 12.9 H Neut % (Auto) 82.8 H Lymph % (Auto) Neut # (Auto) 10.6 H POC BUN 31 H BUN 25 H Creatinine 1.39 H POC Creatinine 1.4 H Estimated GFR 47 L POC Glucose 174 H 185 H Random Glucose 181 H AST 55 H Troponin I Less than 0.02 L Vitamin B12 Urine Protein Amorphous Sediment 03/14/18 03/15/18 03/15/18 20:58 03:14 04:40 WBC 13.5 H Neut % (Auto) 83.7 H Lymph % (Auto) Neut # (Auto) 11.3 H POC BUN BUN Creatinine POC Creatinine Estimated GFR POC Glucose 229 H 213 H Random Glucose AST Troponin I Vitamin B12 Urine Protein Amorphous Sediment 03/15/18 03/15/18 03/15/18 04:40 08:23 12:03 WBC Neut % (Auto) Lymph % (Auto) Neut # (Auto) POC BUN BUN 32 H Creatinine 1.80 H POC Creatinine Estimated GFR 35 L POC Glucose 229 H 270 H Random Glucose 229 H AST Troponin I Vitamin B12 Urine Protein Amorphous Sediment 03/15/18 03/15/18 03/15/18 18:00 18:22 20:49 WBC Neut % (Auto) Lymph % (Auto) Neut # (Auto) POC BUN BUN Creatinine POC Creatinine Estimated GFR POC Glucose 183 H 203 H Random Glucose AST Troponin I Vitamin B12 Urine Protein 100 H Amorphous Sediment Moderate H 03/16/18 03/16/18 03/16/18 03:25 05:15 05:15 WBC 15.4 H Neut % (Auto) 90.0 H Lymph % (Auto) 7.5 L Neut # (Auto) 13.8 H POC BUN BUN 29 H Creatinine 1.60 H POC Creatinine Estimated GFR 40 L POC Glucose 231 H Random Glucose 217 H AST Troponin I Vitamin B12 Urine Protein Amorphous Sediment 03/16/18 03/16/18 03/16/18 08:21 12:22 17:07 WBC Neut % (Auto) Lymph % (Auto) Neut # (Auto) POC BUN BUN Creatinine POC Creatinine Estimated GFR POC Glucose 171 H 251 H 154 H Random Glucose AST Troponin I Vitamin B12 Urine Protein Amorphous Sediment 03/16/18 03/16/18 03/17/18 17:12 20:08 03:28 WBC Neut % (Auto) Lymph % (Auto) Neut # (Auto) POC BUN BUN Creatinine POC Creatinine Estimated GFR POC Glucose 188 H 163 H Random Glucose AST Troponin I Vitamin B12 1036 H Urine Protein Amorphous Sediment Assessment and Plan - Plan Imaging: CT head with Right>left ventricular hemorrhage, without signs of hydrocephalus 62 yo F with uncontrolled SBP found to have IVH -no surgical intervention at this time -hydrocephalus watch: q1 hr neuro checks -aggressive SBP control (goal <140) -recommend CTA head today to evaluate for vascular lesion and evolution of IVH/ hydrocephalus
[2018-03-17] MEDS ORDERED: Labetalol 100 MG Tablet PO SCH (08:00)
[2018-03-17] MEDS: Sod Chloride 0.9% Inj 1,000 ML IV.CONT SCH ×2 (08:35→18:20)
[2018-03-17] MEDS: Labetalol 200 MG Tablet PO SCH ×3 (09:57→20:10)
[2018-03-17] MEDS: amLODIPine 10 MG Tablet PO SCH (09:58)
[2018-03-17 10:47] LABS: Calcium 8.3 mg/dL (8.5-10.1); Carbon Dioxide 21.6 meq/L (21.0-32.0); Potassium 4.1 meq/L (3.5-5.1)
--- NOTE | 2018-03-17 12:35 | ECG ---
Date Performed: 03/16/2018 Time Performed: 05:22:23 PTAGE: 62 years EKG: Sinus rhythm WITH SHORT IA INTERVAL NONSPECIFIC T-WAVE ABNORMALITY ABNORMAL ECG Compared to PREVIOUS TRACING nonspecific T wave changes are now present PREVIOUS TRACIN03/14/18 DOCTOR: Cornell Rodriguez Interpretating Date/Time 03/17/2018 12:32:45
--- NOTE | 2018-03-17 13:22 | MB ---
cc: Erika Quinn MD DATE: 03/17/2018 REASON FOR CONSULTATION: Intracerebral hemorrhage. HISTORY OF PRESENT ILLNESS: The patient is a 62-year-old woman with a history of hypertension, hyperlipidemia, diabetes, comes in to [place] on 03/14/2018 with headaches and dizziness. Blood pressure was over 200 systolic over 100 diastolic. Has not been taking her antihypertensive medicines due to running out. She is now on a Cardene drip. She had a CT of the head that showed a right-sided hemorrhage, right parietal, with extension into the ventricles. She is now in the ICU being managed. She is sleepy but arousable on the Cardene drip. PHYSICAL EXAMINATION: VITAL SIGNS: Temperature 98, pulse 83, respiratory rate 18, blood pressure 135/71. NEUROLOGIC: She does awaken for me. Pupils are reactive. Her face looks symmetrical. Her speech sounds normal as well. She is not aphasic or dysarthric. Motor ken, she seems to move everything equally, but does not follow for complete strength testing. Reflexes are intact. Toes withdraw. Gait and cerebellar cannot be assessed at this time. LABORATORY DATA: Reviewed. White count 15.4. Chemistry: BUN 25, creatinine 1.35, GFR 48, glucose 183, calcium 8.3. B12 of 1036. TSH 1.820. Urine: 100 protein, moderate sediment. Microbiology ken, nothing. IMPRESSION: A 62-year-old woman with uncontrolled hypertension with a new onset headache, most likely more consistent with the hypertension, with now a right-sided hemorrhage. From a neurological perspective, she cannot have a CTA due to an IODINE ALLERGY and she would have to be treated with Benadryl and steroids, but certainly, an MRA of the [place] can be done. Follow her neurologic status. Continue blood pressure control, head of bed slightly elevated. Continue recommendations of neurosurgery. Watch for hydrocephalus. Certainly, if there is any change in her status, a stat CAT scan should be done. Continue recommendations as outlined. MD BUSHRA Hartley/maine , 11:45 AM , 11:51 AM
--- NOTE | 2018-03-17 14:03 | MR ---
EXAM DATE: 03/17/2018 1:57 PM EDT AGE/SEX: 62 years / Female INDICATIONS: Stroke. CLINICAL DATA: This is the patient's initial encounter. Patient reports that signs and symptoms have been present for 1 day and indicates a pain score of 0/10. MEDICAL/SURGICAL HISTORY: Diabetes mellitus type II. Hypertension. None. COMPARISON: [facility], CT HEAD W/O CONTRAST, 03/16/2018. . TECHNIQUE: 3D [id number] MRA was performed. Source images, multiplanar STS MIP, and 3D volum e MIP reconstructions were reviewed. FINDINGS: There is poor, motion limited visualization of the major intracranial arteries out to the second-orde r branch vessels. There is no evidence for aneurysm, vessel truncation or stenosis, and no evidence for vascular malformation. CONCLUSION: 1. Limited exam due to motion. No obvious aneurysm but very limited study Electronically signed by: Braeden Holman MD 03/17/2018 2:02 PM EDT
[2018-03-17 15:42] LABS: Bilirubin,Urine Negative (Negative); Clarity,Urine Clear (Clear); Color,Urine Yellow (Yellw/Straw); Glucose,Urine (UA) 50 mg/dL (Negative); Hyaline Casts,Urine 3 /lpf (0-3); Leukocyte Esterase,Urine Moderate (Negative); Mucus,Urine Few /lpf (Occasional); Nitrite,Urine Negative (Negative); Squamous Epithelial Cell,Urine 1 /hpf (0-5)
[2018-03-18] MEDS: Labetalol 200 MG Tablet PO SCH ×4 (01:24→21:24)
[2018-03-18] MEDS: Morphine Sulfate Inj 2 MG/ML Vial IV.PUSH PRN ×3 (01:24→17:48)
[2018-03-18] MEDS: Insulin NovoLIN Regular Correctional Sugar Inj SQ SCH ×6 (01:25→21:25)
[2018-03-18 04:15] LABS: Calcium 8.2 mg/dL (8.5-10.1); Carbon Dioxide 18.7 meq/L (21.0-32.0); Potassium 4.3 meq/L (3.5-5.1)
[2018-03-18 04:34] LABS: CKMB Percent 0.4 % (0.0-4.0); Creatine Kinase MB 2.2 ng/mL (0.5-3.6)
--- NOTE | 2018-03-18 06:28 | XR ---
EXAM DATE: 03/18/2018 5:11 AM EDT AGE/SEX: 62 years / Female INDICATIONS: Shortness of breath. CLINICAL DATA: This is the patient's subsequent encounter. Patient reports that signs and symptoms h ave been present for 4 - 6 days and indicates a pain score of 0/10. MEDICAL/SURGICAL HISTORY: . Hypertension. Diabetes mellitus type II. None. COMPARISON: [facility], CHEST 1V SINGLE AP, 03/16/2018. . FINDINGS: Compare March 16. Dense consolidation has developed in the right lung base and to a lesser extent at the left lung base with small effusions. Heart size within normal limits. No pneumothorax. CONCLUSION: Development of basilar airspace consolidation and pleural effusions since March 16. Differential d iagnosis includes infection and edema. Electronically signed by: Selvin Shah MD 03/18/2018 5:42 AM EDT
--- NOTE | 2018-03-18 08:21 | P.PNNS ---
Subjective Interval history: Patient denies headache/nausea/vomiting Physical Exam Vital signs: Vital Signs 03/17/18 10:00 03/17/18 12:00 03/17/18 14:00 Temperature 98.0 F 97.7 F Pulse Rate 83 63 65 Respiratory Rate 18 20 Blood Pressure 135/71 111/63 Pulse Oximetry 95 100 03/17/18 16:00 03/17/18 18:00 03/17/18 19:00 Temperature 97.8 F Pulse Rate 60 60 Respiratory Rate 13 Blood Pressure 103/55 L Pulse Oximetry 100 94 L 03/17/18 20:00 03/17/18 21:16 03/17/18 22:00 Temperature 97.5 F L Pulse Rate 68 58 L Respiratory Rate 16 16 Blood Pressure 135/73 Pulse Oximetry 94 L 03/18/18 00:00 03/18/18 00:50 03/18/18 01:26 Temperature 97.7 F Pulse Rate 65 Respiratory Rate 16 20 Blood Pressure 143/65 H Pulse Oximetry 92 L 92 L 03/18/18 02:00 03/18/18 04:00 03/18/18 06:00 Temperature 97.7 F Pulse Rate 64 69 68 Respiratory Rate 16 Blood Pressure 146/74 H Pulse Oximetry 88 L Intake & Output 03/17/18 03/18/18 03/18/18 18:59 06:59 18:59 Intake Total 2250 / 2250 1200 / 1200 Output Total 400 / 400 650 / 650 Balance 1850 / 1850 550 / 550 Weight 76.3 kg Intake: IV 1750 / 1750 1150 / 1150 NS Inj 1,000 ML @ 100 mls/hr IV 1000 / 1000 1000 / 1000 .CONT .Q10H LISS Rx#:[id number] Cardene Inj 25 MG In NS Inj 240 750 / 750 ML @ 5 MG/HR 50 mls/hr IV.CONT TITRATE PRN Rx#:[id number] Levaquin 750 mg Premix Inj 150 0 / 0 150 / 150 ML @ 150 mls/hr IV.SIG NOW ONE Rx#:[id number] Oral 500 / 500 50 / 50 Output: Urine Amount (Catheter) 400 / 400 650 / 650 Indwelling Urethral Catheter 400 / 400 650 / 650 Other: Date of Last Bowel Movement 03/13/18 03/13/18 Narrative: E4 Bright PERRL FROM EOM AOx3 FC x4 5/5 strength in the uppers and lowers no drift - Urinary Catheter Management Indwelling Urethral Catheter Cath placed during this visit: no Reason for continuing: Acute urinary retention Assessment and Plan - Plan A/P: 62 yo F with uncontrolled SBP found to have IVH -MRA limited but without appreciable vascular lesion. stable ventricular size with improved IVH -no surgical intervention indicated -further management per primary service -follow up with neurosurgery prn
[2018-03-18] MEDS: amLODIPine 10 MG Tablet PO SCH (08:34)
--- NOTE | 2018-03-18 10:58 | US ---
EXAM DATE: 03/18/2018 10:53 AM EDT AGE/SEX: 62 years / Female INDICATIONS: Bilateral leg swelling. CLINICAL DATA: This is the patient's initial encounter. Patient reports that signs and symptoms have been present for 1 day and indicates a pain score of 0/10. MEDICAL/SURGICAL HISTORY: Diabetes. Hypertension. None. COMPARISON: No prior exams available for comparison. TECHNIQUE: Venous ultrasound of both lower extremities was performed from the inguinal ligament to t he proximal calf. Real-time, color Doppler and spectral tracing, compression and augmentation techni ques were used. FINDINGS: Right Leg: Normal compression of the deep venous system from the inguinal region to the proximal pal f. No echogenic clot is seen. Normal response of the venous system to augmentation and respiration. Left Leg: Normal compression of the deep venous system from the inguinal region to the proximal calf . No echogenic clot is seen. Normal response of the venous system to augmentation and respiration. CONCLUSION: 1. Negative deep venous thrombosis. Electronically signed by: Adrian Nelson MD 03/18/2018 10:56 AM EDT
--- NOTE | 2018-03-18 13:11 | MG ---
cc: Triston Thao MD, PhD TEST NUMBER: [id number]. TECHNIQUE: A 17-channel EEG. DESCRIPTION: The background rhythm reveals alpha rhythm, frequency of 8 Hz. There is some slowing in the theta range, probably related to lethargy. No lateralizing features are seen. No epileptiform discharges. There is fairly prominent muscle artifact present. Photic results in no significant driving response. INTERPRETATION: Abnormal study consistent with mild encephalopathy. Triston Thao MD, PhD CHIARA/alejo , 12:57 PM , 01:01 PM
--- NOTE | 2018-03-18 16:31 | P.PNCC ---
Subjective Subjective Remarks/Hospital Course: 03/17: 62-year-old -Swedish female with past medical history of hypertension, hyperlipidemia, diabetes who presented to [facility] with 3-day history of headache and dizziness. Her blood pressure was in 220/ 110. She says that she had not been taking her antihypertensive medications because she had run out. She was admitted and treated for hypertensive emergency with Cardene drip. On 03/16 she experienced confusion and CT brain was obtained which demonstrated right intraparenchymal hemorrhage with intraventricular extension. Dr. Mejia discussed case with neurosurgery who recommended holding ASA, BP control <140 mmHg, CTA. Patient will need frequent neurochecks for hydrocephalus as well as monitoring of airway protection, and therefore was transferred to [facility]. She complains of headache, nausea. 03/18: Dropped O2 sats last night requiring supplemental O2. Received Lasix after chest x-ray revealed pulmonary edema with possible infiltrates. This morning patient is on facemask breathing comfortably. Awake and alert, moving all 4 extremities and following commands. She was started on Levaquin yesterday for UTI. Objective Vital Signs / I&O: Vital Signs 03/17/18 18:00 03/17/18 19:00 03/17/18 20:00 Temperature 97.5 F L Pulse Rate 60 68 Respiratory Rate 16 Blood Pressure 135/73 Pulse Oximetry 94 L 94 L 03/17/18 21:16 03/17/18 22:00 03/18/18 00:00 Temperature 97.7 F Pulse Rate 58 L 65 Respiratory Rate 16 16 Blood Pressure 143/65 H Pulse Oximetry 92 L 03/18/18 00:50 03/18/18 01:26 03/18/18 02:00 Temperature Pulse Rate 64 Respiratory Rate 20 Blood Pressure Pulse Oximetry 92 L 03/18/18 04:00 03/18/18 06:00 03/18/18 07:00 Temperature 97.7 F Pulse Rate 69 68 Respiratory Rate 16 Blood Pressure 146/74 H Pulse Oximetry 88 L 96 03/18/18 08:00 03/18/18 10:00 03/18/18 10:06 Temperature 98.1 F Pulse Rate 67 65 Respiratory Rate 23 Blood Pressure 150/77 H Pulse Oximetry 96 97 03/18/18 12:00 03/18/18 14:00 Temperature 97.8 F Pulse Rate 63 68 Respiratory Rate 12 Blood Pressure 131/65 Pulse Oximetry 95 Intake & Output 03/17/18 03/18/18 03/18/18 18:59 06:59 18:59 Intake Total 2250 / 2250 1200 / 1200 Output Total 400 / 400 650 / 650 Balance 1850 / 1850 550 / 550 Weight 76.3 kg Intake: IV 1750 / 1750 1150 / 1150 NS Inj 1,000 ML @ 100 mls/hr IV 1000 / 1000 1000 / 1000 .CONT .Q10H [facility] Rx#:[id number] Cardene Inj 25 MG In NS Inj 240 750 / 750 ML @ 5 MG/HR 50 mls/hr IV.CONT TITRATE PRN Rx#:[id number] Levaquin 750 mg Premix Inj 150 0 / 0 150 / 150 ML @ 150 mls/hr IV.SIG NOW ONE Rx#:[id number] Oral 500 / 500 50 / 50 Output: Urine Amount (Catheter) 400 / 400 650 / 650 Indwelling Urethral Catheter 400 / 400 650 / 650 Other: Date of Last Bowel Movement 03/13/18 03/13/18 03/13/18 Result Diagrams: 03/16/18 05:15 03/18/18 03:25 Imaging: Chest X-Ray 03/14/18 10:22 CONCLUSION: Mild streaky right base parenchymal opacity. Head CT 03/16/18 00:00 CONCLUSION: 1. Acute intraparenchymal hemorrhage involving the right parietal lobe with extension into the ventricles. There is mild prominence of the ventricles without evidence of sulcal effacement or midline shift at this time. These findings were referred to the referring physician Dr. Mejia at 4:40 PM. . Chest X-Ray 03/16/18 06:00 CONCLUSION: The lungs are clear. Head MRA 03/17/18 00:00 CONCLUSION: 1. Limited exam due to motion. No obvious aneurysm but very limited study Chest X-Ray 03/18/18 00:00 CONCLUSION: Development of basilar airspace consolidation and pleural effusions since March 16. Differential diagnosis includes infection and edema. Venous Doppler Study 03/18/18 02:43 CONCLUSION: 1. Negative deep venous thrombosis. Objective Remarks: HEENT/Neuro: No pallor or icterus, tongue moist, RANJANA, Awake alert oriented 3 , nonfocal grossly, moving all 4 extremities Neck: No JVD Chest/pulmonary: Air entry decreased bilaterally at bases, scattered rhonchi bilaterally, no wheezing Cardiovascular: S1-S2 regular no gallop or murmur GI/abdomen: Soft, nontender, bowel sounds present Extremities: Warm bilaterally, no edema Assessment and Plan - Assessment and Plan Plan: NEURO: R intraparenchymal hemorrhage with intraventricular extension. Neurochecks every hour to monitor for evidence of hydrocephalus Maintain systolic blood pressure less than 140 per neurosurgery recommendations Aspirin on hold MRA brain with no aneurysm. Neurosurgery consult noted, no intervention planned at this time. RESP: IS q 1 hour. She is protecting her airway. Supplemental O2, bronchodilators as needed. Continue to monitor. CV: Malignant hypertension Hyperlipidemia Continue Norvasc 10 mg p.o. daily, labetalol 200 bid -->increase to q6 hours. Nicardipine drip titrate to maintain SBP <140, currently at 10 mg/hr. Initiated on Lasix for diuresis to mobilize fluid in view of possible fluid overload on chest x-ray. Check BNP, 2D echo Atorvastatin 40 mg p.o. daily GI: Obesity Advance diet per speech and swallow therapist recommendation. FEN/RENAL: Acute kidney injury Strict intake output, monitor and replete electrodes, follow BN creatinine. Diuresing with Lasix ID: Leukocytosis UTI Possible pneumonia Follow urine cultures. On Levaquin for empiric antibiotic coverage. HEME: No acute hematologic issues ENDO: Diabetes mellitus Detemir 10 units subcu nightly. Bedside glucose achs with low-dose insulin sliding scale PROPH: SCDs for DVT prophylaxis. Avoid pharmacologic DVT prophylaxis at this time due to intraparenchymal hemorrhage. Stress ulcer prophylaxis is not currently indicated. ACCESS: Peripheral IV providing adequate access
--- NOTE | 2018-03-18 18:21 | P.PNADD ---
Addendum to Inpatient Note Additional information: Clarification: Patient is inpatient status since 03/14/18
--- NOTE | 2018-03-18 18:32 | ECHRPT ---
Indication: Shortness of Breath CONCLUSIONS The left ventricular systolic function is hyperdynamic with an estimated ejection fraction in the ra nge of 65- 70%. Trace mitral valve regurgitation. There is trace tricuspid valve regurgitation. Trivial pulmonary valve regurgitation. BP: / HR: Rhythm: MEASUREMENTS (Male / Female) Normal Values Technical Quality:Good 2D ECHO LV Diastolic Diameter PLAX 3.7 cm 4.2 - 5.9 / 3.9 - 5.3 cm LV Systolic Diameter PLAX 2.4 cm IVS Diastolic Thickness 1.1 cm 0.6 - 1.0 / 0.6 - 0.9 cm LVPW Diastolic Thickness 1.1 cm 0.6 - 1.0 / 0.6 - 0.9 cm LV Relative Wall Thickness 0.6 RV Internal Dim ED PLAX 2.7 cm LVOT Diameter 1.9 cm Aortic Root Diameter 2.5 cm LA Systolic Diameter LX 2.9 cm 3.0 - 4.0 / 2.7 - 3.8 cm DOPPLER AV Peak Velocity 197.0 cm/s AV Peak Gradient 15.5 mmHg LVOT Peak Velocity 164.0 cm/s LVOT Peak Gradient 10.8 mmHg AV Area Cont Eq pk 2.4 cm Mitral E Point Velocity 114.0 cm/s Mitral A Point Velocity 110.0 cm/s Mitral E to A Ratio 1.0 LV E' Lateral Velocity 7.2 cm/s Mitral E to LV E' Lateral Ratio 15.8 LV E' Septal Velocity 7.2 cm/s Mitral E to LV E' Septal Ratio 15.8 TR Peak Velocity 307.0 cm/s TR Peak Gradient 37.7 mmHg Right Atrial Pressure 10.0 mmHg Pulmonary Artery Systolic Pressu 47.7 mmHg Right Ventricular Systolic Press 47.7 mmHg PV Peak Velocity 93.9 cm/s PV Peak Gradient 3.5 mmHg FINDINGS LEFT VENTRICLE Normal left ventricular size. Wall thickness is normal. The left ventricular systolic function is hyperdynamic with an estimated ejection fraction in the ra nge of 65- 70%. RIGHT VENTRICLE Normal right ventricular size and systolic function. LEFT ATRIUM The left atrial size is normal. RIGHT ATRIUM The right atrial size is normal. ATRIAL SEPTUM Normal atrial septal thickness without atrial level shunting by limited color doppler interrogation. AORTA The aortic root and proximal ascending aorta are normal in size on limited imaging. MITRAL VALVE Structurally normal mitral valve. No mitral valve stenosis. Trace mitral valve regurgitation. AORTIC VALVE Trileaflet aortic valve. No aortic valve stenosis or regurgitation. TRICUSPID VALVE Structurally normal tricuspid valve. No tricuspid valve stenosis. There is trace tricuspid valve regurgitation. PULMONARY VALVE Trivial pulmonary valve regurgitation. VESSELS The inferior vena cava is normal in size. PERICARDIUM No pericardial effusion. Yoan Valentine DO (Electronically Signed) Final Date:18 March 2018 18:31
[2018-03-18] MEDS: Acetaminophen 325 MG Tablet PO PRN (20:48)
[2018-03-19] MEDS: Labetalol 200 MG Tablet PO SCH ×4 (01:11→19:54)
[2018-03-19] MEDS: Insulin NovoLIN Regular Correctional Sugar Inj SQ SCH ×5 (03:32→20:39)
--- NOTE | 2018-03-19 08:42 | P.PNCC ---
Subjective Subjective Remarks/Hospital Course: 03/17: 62-year-old -[place] female with past medical history of hypertension, hyperlipidemia, diabetes who presented to [facility] with 3-day history of headache and dizziness. Her blood pressure was in 220/ 110. She says that she had not been taking her antihypertensive medications because she had run out. She was admitted and treated for hypertensive emergency with Cardene drip. On 03/16 she experienced confusion and CT brain was obtained which demonstrated right intraparenchymal hemorrhage with intraventricular extension. Dr. Mejia discussed case with neurosurgery who recommended holding ASA, BP control <140 mmHg, CTA. Patient will need frequent neurochecks for hydrocephalus as well as monitoring of airway protection, and therefore was transferred to [facility]. She complains of headache, nausea. 03/18: Dropped O2 sats last night requiring supplemental O2. Received Lasix after chest x-ray revealed pulmonary edema with possible infiltrates. This morning patient is on facemask breathing comfortably. Awake and alert, moving all 4 extremities and following commands. She was started on Levaquin yesterday for UTI. 03/19: Remains afebrile. Blood pressure control acceptable. Still ahead on free water, continue gentle diuresis. Right lower lung field infiltrate is worrisome, suspect just water follow closely for fever or leukocytosis. Objective Vital Signs / I&O: Vital Signs 03/18/18 10:00 03/18/18 10:06 03/18/18 12:00 Temperature 97.8 F Pulse Rate 65 63 Respiratory Rate 12 Blood Pressure 131/65 Pulse Oximetry 97 95 03/18/18 14:00 03/18/18 16:00 03/18/18 18:00 Temperature 98.5 F Pulse Rate 68 76 72 Respiratory Rate 16 Blood Pressure 139/72 Pulse Oximetry 92 L 03/18/18 20:00 03/18/18 20:54 03/18/18 22:00 Temperature 98.4 F Pulse Rate 72 72 Respiratory Rate 15 Blood Pressure 141/73 H Pulse Oximetry 94 L 94 L 03/19/18 00:00 03/19/18 02:00 03/19/18 04:00 Temperature 98.6 F 98.4 F Pulse Rate 80 76 70 Respiratory Rate 21 15 Blood Pressure 146/79 H 132/65 Pulse Oximetry 96 92 L 03/19/18 06:00 03/19/18 07:00 Temperature Pulse Rate 74 Respiratory Rate Blood Pressure Pulse Oximetry 95 Intake & Output 03/18/18 03/19/18 03/19/18 18:59 06:59 18:59 Intake Total 960 / 960 Output Total 950 / 950 675 / 675 Balance -675 / -675 Weight 73 kg Intake: Oral 960 / 960 Output: Urine Amount (Catheter) 950 / 950 675 / 675 Indwelling Urethral Catheter 950 / 950 675 / 675 Other: Date of Last Bowel Movement 03/13/18 03/13/18 # Bowel Movements 0 0 Result Diagrams: 03/16/18 05:15 03/18/18 03:25 Objective Remarks: HEENT/Neuro: No pallor or icterus, tongue moist, RANJANA, Awake alert oriented 3 , nonfocal grossly, moving all 4 extremities to command. Neck: No JVD. Airway widely patent, no obstructive noises. Chest/pulmonary: Air entry acceptable bilaterally at bases, no wheezing Cardiovascular: S1-S2 regular no gallop or murmur, no JVD GI/abdomen: Soft, nontender, bowel sounds present, no guarding Extremities: Warm bilaterally, no edema, well-perfused. Assessment and Plan - Assessment and Plan Plan: NEURO: R intraparenchymal hemorrhage with intraventricular extension. Neurochecks every hour to monitor for evidence of hydrocephalus Maintain systolic blood pressure less than 140 per neurosurgery recommendations Aspirin on hold MRA brain with no aneurysm. Neurosurgery consult noted, no intervention planned at this time. Continue tight blood pressure control. RESP: IS q 1 hour. She is protecting her airway. Supplemental O2, bronchodilators as needed. Continue to monitor. Follow right lung infiltrate closely. CV: Malignant hypertension Hyperlipidemia Continue Norvasc 10 mg p.o. daily, labetalol 200 bid -->increase to q6 hours. Nicardipine drip titrate to maintain SBP <140, currently at 10 mg/hr. Initiated on Lasix for diuresis to mobilize fluid in view of possible fluid overload on chest x-ray. Check BNP, 2D echo Atorvastatin 40 mg p.o. daily GI: Obesity Advance diet per speech and swallow therapist recommendation. FEN/RENAL: Acute kidney injury Strict intake output, monitor and replete electrodes, follow BN creatinine. Diuresing with Lasix ID: Leukocytosis UTI Possible pneumonia Follow urine cultures. On Levaquin for empiric antibiotic coverage. HEME: No acute hematologic issues ENDO: Diabetes mellitus Detemir 10 units subcu nightly. Bedside glucose achs with low-dose insulin sliding scale PROPH: SCDs for DVT prophylaxis. Avoid pharmacologic DVT prophylaxis at this time due to intraparenchymal hemorrhage. Stress ulcer prophylaxis is not currently indicated. ACCESS: Peripheral IV providing adequate access Overall impression: No deterioration in neurological function. Stable hemodynamics and respiratory function.
[2018-03-19] MEDS: amLODIPine 10 MG Tablet PO SCH (11:24)
[2018-03-19] MEDS: Morphine Sulfate Inj 2 MG/ML Vial IV.PUSH PRN (11:25)
[2018-03-19] MEDS: niCARdipine Inj 25 MG in Sodium Chlor 0.9% Inj 240 ML IV.CONT PRN (13:15)
[2018-03-19] MEDS: Acetaminophen 325 MG Tablet PO PRN (19:54)
[2018-03-20] MEDS: Labetalol 200 MG Tablet PO SCH ×3 (02:04→13:00)
[2018-03-20] MEDS: Insulin NovoLIN Regular Correctional Sugar Inj SQ SCH ×5 (03:23→22:11)
[2018-03-20] MEDS: Morphine Sulfate Inj 2 MG/ML Vial IV.PUSH PRN ×2 (04:55→10:41)
[2018-03-20 07:36] LABS: Calcium 8.5 mg/dL (8.5-10.1); Carbon Dioxide 23.4 meq/L (21.0-32.0)
[2018-03-20] MEDS: amLODIPine 10 MG Tablet PO SCH (08:46)
--- NOTE | 2018-03-20 13:36 | P.PNCC ---
Subjective Subjective Remarks/Hospital Course: 03/17: 62-year-old -Maced[place] female with past medical history of hypertension, hyperlipidemia, diabetes who presented to [facility] with 3-day history of headache and dizziness. Her blood pressure was in 220/ 110. She says that she had not been taking her antihypertensive medications because she had run out. She was admitted and treated for hypertensive emergency with Cardene drip. On 03/16 she experienced confusion and CT brain was obtained which demonstrated right intraparenchymal hemorrhage with intraventricular extension. Dr. Mejia discussed case with neurosurgery who recommended holding ASA, BP control <140 mmHg, CTA. Patient will need frequent neurochecks for hydrocephalus as well as monitoring of airway protection, and therefore was transferred to [facility]. She complains of headache, nausea. 03/18: Dropped O2 sats last night requiring supplemental O2. Received Lasix after chest x-ray revealed pulmonary edema with possible infiltrates. This morning patient is on facemask breathing comfortably. Awake and alert, moving all 4 extremities and following commands. She was started on Levaquin yesterday for UTI. 03/19: Remains afebrile. Blood pressure control acceptable. Still ahead on free water, continue gentle diuresis. Right lower lung field infiltrate is worrisome, suspect just water follow closely for fever or leukocytosis. 03/20: Breathing comfortably on nasal cannula while lying flat. Blood pressure control acceptable, will convert to an outpatient regimen. Off Cardene drip for 24 hours. Continues to fall back to sleep easily. Objective Vital Signs / I&O: Vital Signs 03/19/18 14:00 03/19/18 16:00 03/19/18 18:00 Temperature 98.2 F Pulse Rate 75 72 70 Respiratory Rate 16 Blood Pressure 119/56 L Pulse Oximetry 88 L 03/19/18 19:00 03/19/18 19:58 03/19/18 20:00 Temperature 97.9 F Pulse Rate 76 Respiratory Rate 24 Blood Pressure 144/80 H Pulse Oximetry 98 93 L 94 L 03/19/18 21:15 03/19/18 22:00 03/20/18 00:00 Temperature 98.1 F Pulse Rate 70 23 L Respiratory Rate 19 23 Blood Pressure 136/72 Pulse Oximetry 94 L 03/20/18 02:00 03/20/18 04:00 03/20/18 06:00 Temperature 98.4 F Pulse Rate 74 72 74 Respiratory Rate 21 Blood Pressure 149/67 H Pulse Oximetry 91 L 03/20/18 07:52 Temperature Pulse Rate Respiratory Rate Blood Pressure Pulse Oximetry 91 L Intake & Output 03/19/18 03/20/18 03/20/18 18:59 06:59 18:59 Intake Total 630 / 630 250 / 250 Output Total 950 / 950 550 / 550 Balance -320 / -320 -300 / -300 Weight 73.1 kg Intake: IV 150 / 150 250 / 250 Cardene Inj 25 MG In NS Inj 240 250 / 250 ML @ 5 MG/HR 50 mls/hr IV.CONT TITRATE PRN Rx#:[id number] Levaquin 750 mg Premix Inj 150 150 / 150 ML @ 150 mls/hr IV.SIG Q48H [facility] Rx#:[id number] Oral 480 / 480 Output: Urine Amount (Catheter) 950 / 950 550 / 550 Indwelling Urethral Catheter 950 / 950 550 / 550 Other: Date of Last Bowel Movement 03/13/18 03/13/18 # Bowel Movements 0 0 Result Diagrams: 03/16/18 05:15 03/20/18 06:00 Objective Remarks: HEENT/Neuro: No pallor or icterus, tongue moist, RANJANA, Awake alert but falls back asleep, nonfocal grossly, moving all 4 extremities to command. Neck: No JVD. Airway widely patent, no obstructive noises. Chest/pulmonary: Air entry acceptable bilaterally at bases, no wheezing. Comfortable respiratory pattern while lying flat Cardiovascular: S1-S2 regular no gallop or murmur, no JVD GI/abdomen: Soft, nontender, bowel sounds present, no guarding Extremities: Warm bilaterally, no edema, well-perfused. Assessment and Plan - Assessment and Plan Plan: NEURO: R intraparenchymal hemorrhage with intraventricular extension. Neurochecks every hour to monitor for evidence of hydrocephalus Maintain systolic blood pressure less than 140 per neurosurgery recommendations Aspirin on hold MRA brain with no aneurysm. Neurosurgery consult noted, no intervention planned at this time. Continue tight blood pressure control. RESP: IS q 1 hour. She is protecting her airway. Supplemental O2, bronchodilators as needed. Continue to monitor. Follow right lung infiltrate closely. Remains afebrile. CV: Malignant hypertension Hyperlipidemia Continue Norvasc 10 mg p.o. daily, labetalol 200 bid -->increase to q6 hours. Nicardipine drip titrate to maintain SBP <140, currently at 10 mg/hr. Initiated on Lasix for diuresis to mobilize fluid in view of possible fluid overload on chest x-ray. Check BNP, 2D echo Atorvastatin 40 mg p.o. daily Discontinue labetalol. Start losartan. Start Lopressor 50 mg twice daily and hydralazine 100. Continue amlodipine. GI: Obesity Advance diet per speech and swallow therapist recommendation. FEN/RENAL: Acute kidney injury Strict intake output, monitor and replete electrodes, follow BN creatinine. Diuresing with Lasix. GFR improving ID: Leukocytosis UTI Possible pneumonia Follow urine cultures. On Levaquin for empiric antibiotic coverage. HEME: No acute hematologic issues ENDO: Diabetes mellitus Detemir 10 units subcu nightly. Bedside glucose achs with low-dose insulin sliding scale PROPH: SCDs for DVT prophylaxis. Avoid pharmacologic DVT prophylaxis at this time due to intraparenchymal hemorrhage. Stress ulcer prophylaxis is not currently indicated. ACCESS: Peripheral IV providing adequate access Overall impression: No deterioration in neurological function. Stable hemodynamics and respiratory function. Breathing is much improved over the past 48 hours.
[2018-03-20] MEDS: Metoprolol Tartrate 50 MG Tablet PO SCH ×2 (18:06→20:57)
[2018-03-21] MEDS: Morphine Sulfate Inj 2 MG/ML Vial IV.PUSH PRN (01:35)
[2018-03-21] MEDS: Insulin NovoLIN Regular Correctional Sugar Inj SQ SCH ×5 (03:17→22:09)
[2018-03-21] MEDS: Acetaminophen 325 MG Tablet PO PRN ×2 (05:42→10:40)
[2018-03-21 07:08] LABS: Calcium 8.3 mg/dL (8.5-10.1); Carbon Dioxide 24.4 meq/L (21.0-32.0); Potassium 4.1 meq/L (3.5-5.1)
[2018-03-21] MEDS: amLODIPine 10 MG Tablet PO SCH (08:33)
[2018-03-21] MEDS: Metoprolol Tartrate 50 MG Tablet PO SCH ×2 (10:30→20:49)
--- NOTE | 2018-03-21 15:25 | P.PNIM ---
Subjective Interval history: Patient reports she is feeling okay except for the headache. Discussed with RN. Tylenol is helping. Physical Exam Vital signs: Vital Signs 03/20/18 16:00 03/20/18 18:00 03/20/18 20:00 Temperature 98.6 F 98.4 F Pulse Rate 70 66 70 Respiratory Rate 18 25 H Blood Pressure 138/71 141/78 H Pulse Oximetry 89 L 91 L 03/20/18 20:49 03/20/18 22:00 03/21/18 00:00 Temperature 98.4 F Pulse Rate 72 72 Respiratory Rate 26 H Blood Pressure 125/77 Pulse Oximetry 94 L 87 L 03/21/18 00:35 03/21/18 02:00 03/21/18 04:00 Temperature 98.1 F Pulse Rate 74 74 Respiratory Rate 19 Blood Pressure 144/67 H Pulse Oximetry 97 85 L 03/21/18 06:00 03/21/18 07:00 03/21/18 08:00 Temperature 98.3 F Pulse Rate 78 63 Respiratory Rate 18 Blood Pressure 135/63 Pulse Oximetry 90 L 89 L 03/21/18 10:00 Temperature Pulse Rate 72 Respiratory Rate Blood Pressure Pulse Oximetry Intake & Output 03/20/18 03/21/18 03/21/18 18:59 06:59 18:59 Intake Total 480 / 480 240 / 240 150 / 150 Output Total 750 / 750 370 / 370 Balance -270 / -270 -130 / -130 150 / 150 Weight 75 kg Intake: IV 150 / 150 Levaquin 750 mg Premix Inj 150 150 / 150 ML @ 150 mls/hr IV.SIG Q48H [facility] Rx#:[id number] Oral 480 / 480 240 / 240 Output: Urine Amount (Catheter) 750 / 750 370 / 370 Indwelling Urethral Catheter 750 / 750 370 / 370 Other: Date of Last Bowel Movement 03/13/18 03/13/18 # Bowel Movements 0 Narrative: GENERAL: This is a well-nourished, well-developed patient, in no apparent distress. CARDIOVASCULAR: Normal rate and regular rhythm without murmurs, gallops, or rubs. RESPIRATORY: Good respiratory efforts. Breath sounds equal and clear to auscultation bilaterally. GASTROINTESTINAL: Abdomen soft, non-tender, non-distended. Normal active bowel sounds MUSCULOSKELETAL: Extremities without cyanosis, or edema. NEURO: Alert & Oriented x4 to person, place, time, situation. Moves all ext x4 PSYCH: Appropriate mood and affect. - Urinary Catheter Management Indwelling Urethral Catheter Cath placed during this visit: yes Reason for continuing: Acute urinary retention Insertion date: 03/16/18 Results - Labs CBC & Chem 7: 03/16/18 05:15 03/21/18 05:10 Laboratory Results - last 24 hr 03/20/18 03/20/18 03/21/18 18:21 21:03 03:05 Sodium Potassium Chloride Carbon Dioxide Anion Gap BUN Creatinine Estimated GFR POC Glucose 225 H 254 H 123 H Random Glucose Calcium 03/21/18 03/21/18 03/21/18 05:10 08:22 11:48 Sodium 137 Potassium 4.1 Chloride 104 Carbon Dioxide 24.4 Anion Gap 9 BUN 17 Creatinine 1.12 H Estimated GFR 60 L POC Glucose 192 H 244 H Random Glucose 117 H Calcium 8.3 L Assessment and Plan - Assessment (1) Hypertensive urgency Code(s): I16.0 - Hypertensive urgency Status: Acute - Plan 62-year-old female with: R intraparenchymal hemorrhage with intraventricular extension. Neurochecks every hour to monitor for evidence of hydrocephalus Maintain systolic blood pressure less than 140 per neurosurgery recommendations Aspirin on hold MRA brain with no aneurysm. Neurosurgery consult noted, no intervention planned at this time. Malignant hypertension Hyperlipidemia Atorvastatin 40 mg p.o. daily losartan. Lopressor 50 mg twice daily and hydralazine 100. Continue amlodipine. Obesity Advance diet per speech and swallow therapist recommendation. Acute kidney injury Strict intake output, monitor and replete electrodes, follow BN creatinine. Diuresing with Lasix. GFR improving Leukocytosis Possible pneumonia On Levaquin for empiric antibiotic coverage. Incentive spirometry. Follow progress. Diabetes mellitus Detemir 10 units subcu nightly. Bedside glucose achs with low-dose insulin sliding scale PROPH: SCDs for DVT prophylaxis. Avoid pharmacologic DVT prophylaxis at this time due to intraparenchymal hemorrhage. Stress ulcer prophylaxis is not currently indicated. Discharge Planning: Okay to transfer to floor.
[2018-03-22] MEDS: Insulin NovoLIN Regular Correctional Sugar Inj SQ SCH ×5 (04:56→22:07)
[2018-03-22 05:45] LABS: Calcium 8.4 mg/dL (8.5-10.1)
[2018-03-22] MEDS: amLODIPine 10 MG Tablet PO SCH (09:34)
--- NOTE | 2018-03-22 10:06 | P.PNIM ---
Subjective Interval history: Patient reports she is feeling weak. Discussed with RN. She is having urinary retention. She complains of bladder discomfort. Physical Exam Vital signs: Vital Signs 03/21/18 12:00 03/21/18 14:00 03/21/18 16:00 Temperature 97.9 F 97.7 F Pulse Rate 70 74 78 Respiratory Rate 21 18 Blood Pressure 165/76 H 151/71 H Pulse Oximetry 92 L 93 L 03/21/18 18:00 03/21/18 20:00 03/21/18 21:18 Temperature 97.9 F Pulse Rate 89 90 Respiratory Rate 15 Blood Pressure 152/70 H Pulse Oximetry 93 L 03/21/18 22:00 03/22/18 00:00 03/22/18 00:42 Temperature 98.2 F Pulse Rate 90 72 Respiratory Rate 25 H Blood Pressure 155/70 H Pulse Oximetry 94 L 95 03/22/18 02:00 03/22/18 03:15 03/22/18 04:00 Temperature 98.0 F Pulse Rate 76 76 Respiratory Rate Blood Pressure 157/75 H Pulse Oximetry 94 L 96 03/22/18 06:00 03/22/18 07:00 Temperature Pulse Rate 76 Respiratory Rate Blood Pressure Pulse Oximetry 96 Intake & Output 03/21/18 03/22/18 03/22/18 18:59 06:59 18:59 Intake Total 430 / 430 Output Total 750 / 750 800 / 800 Balance -320 / -320 -800 / -800 Weight 72.1 kg Intake: IV 150 / 150 Levaquin 750 mg Premix Inj 150 150 / 150 ML @ 150 mls/hr IV.SIG Q48H [facility] Rx#:[id number] Oral 280 / 280 Output: Urine 800 / 800 Urine Amount (Catheter) 750 / 750 Indwelling Urethral Catheter 750 / 750 Other: Date of Last Bowel Movement 03/21/18 03/21/18 Narrative: GENERAL: This is a well-nourished, well-developed patient, in no apparent distress. CARDIOVASCULAR: Normal rate and regular rhythm without murmurs, gallops, or rubs. RESPIRATORY: Diminished breath sounds bilaterally at the bases. Otherwise clear to auscultation. GASTROINTESTINAL: Abdomen soft, some suprapubic tenderness. Normoactive bowel sounds. MUSCULOSKELETAL: Extremities without cyanosis, or edema. NEURO: Alert & Oriented x4 to person, place, time, situation. Bilateral lower extremity weakness 3 out of 5. Rest of major muscle groups 5 out of 5. PSYCH: Appropriate mood and affect. - Urinary Catheter Management Indwelling Urethral Catheter Cath placed during this visit: yes Reason for continuing: Acute urinary retention Insertion date: 03/16/18 Results - Labs CBC & Chem 7: 03/16/18 05:15 03/22/18 04:41 Laboratory Results - last 24 hr 03/21/18 03/21/18 03/21/18 11:48 17:04 22:04 Sodium Potassium Chloride Carbon Dioxide Anion Gap BUN Creatinine Estimated GFR POC Glucose 244 H 170 H 196 H Random Glucose Calcium 03/22/18 03/22/18 03/22/18 03:52 04:41 08:10 Sodium 134 L Potassium 4.0 Chloride 100 Carbon Dioxide 23.0 Anion Gap 11 BUN 15 Creatinine 1.17 H Estimated GFR 57 L POC Glucose 113 H 131 H Random Glucose 127 H Calcium 8.4 L Assessment and Plan - Assessment (1) Hypertensive urgency Code(s): I16.0 - Hypertensive urgency Status: Acute - Plan 62-year-old female with: R intraparenchymal hemorrhage with intraventricular extension. Neurochecks every hour to monitor for evidence of hydrocephalus Maintain systolic blood pressure less than 140 per neurosurgery recommendations Aspirin on hold MRA brain with no aneurysm. Neurosurgery consult noted, no intervention planned at this time. Need rehab. Malignant hypertension Hyperlipidemia Atorvastatin 40 mg p.o. daily losartan. Lopressor 50 mg twice daily and hydralazine 100. Continue amlodipine. Obesity Advance diet per speech and swallow therapist recommendation. Acute kidney injury Strict intake output, monitor and replete electrodes, follow BN creatinine. Diuresing with Lasix. GFR improving Leukocytosis Possible pneumonia Still requiring oxygen. On Levaquin for empiric antibiotic coverage. Incentive spirometry. Follow progress. Diabetes mellitus Detemir 10 units subcu nightly. Bedside glucose achs with low-dose insulin sliding scale PROPH: SCDs for DVT prophylaxis. Avoid pharmacologic DVT prophylaxis at this time due to intraparenchymal hemorrhage. Stress ulcer prophylaxis is not currently indicated. Discharge Planning: Okay to transfer to floor. Case management consult. [facility] versus SNF placement. Possible discharge tomorrow.
[2018-03-22] MEDS: Metoprolol Tartrate 50 MG Tablet PO SCH ×3 (10:48→20:26)
[2018-03-22] MEDS: Acetaminophen 325 MG Tablet PO PRN (20:27)
[2018-03-23] MEDS ORDERED: Sodium Chlor 0.9% Inj 500 ML IV.SIG SCH (02:00)
[2018-03-23] MEDS: Acetaminophen 325 MG Tablet PO PRN (04:08)
[2018-03-23] MEDS: Insulin NovoLIN Regular Correctional Sugar Inj SQ SCH ×5 (04:08→20:53)
[2018-03-23 06:59] LABS: Calcium 8.3 mg/dL (8.5-10.1); Carbon Dioxide 25.4 meq/L (21.0-32.0); Potassium 3.8 meq/L (3.5-5.1)
[2018-03-23] MEDS: Metoprolol Tartrate 50 MG Tablet PO SCH ×2 (09:36→20:53)
[2018-03-23] MEDS: amLODIPine 10 MG Tablet PO SCH (09:36)
--- NOTE | 2018-03-23 13:18 | P.PNIM ---
Subjective Interval history: Patient reports she is feeling okay today. No new neurological issues. Physical Exam Vital signs: Vital Signs 03/22/18 14:00 03/22/18 14:51 03/22/18 16:00 Temperature 98.4 F Pulse Rate 90 84 82 Respiratory Rate 18 Blood Pressure 182/79 H 131/62 148/70 H Pulse Oximetry 94 L 03/22/18 20:00 03/23/18 00:00 03/23/18 04:00 Temperature 98.8 F 99.6 F 98.9 F Pulse Rate 81 73 78 Respiratory Rate 18 Blood Pressure 143/67 H 124/60 163/74 H Pulse Oximetry 95 95 95 03/23/18 08:00 03/23/18 10:15 03/23/18 12:00 Temperature 98.7 F 97.6 F Pulse Rate 87 85 Respiratory Rate 18 12 Blood Pressure 128/73 131/62 Pulse Oximetry 93 L 93 L 93 L Intake & Output 03/22/18 03/23/18 03/23/18 18:59 06:59 18:59 Intake Total 280 / 280 1100 / 1100 150 / 150 Output Total 1275 / 1275 350 / 350 Balance -995 / -995 750 / 750 150 / 150 Weight 70.7 kg 71.1 kg Intake: IV 500 / 500 150 / 150 Levaquin 750 mg Premix Inj 150 150 / 150 ML @ 150 mls/hr IV.SIG Q48H [facility] Rx#:[id number] NS Inj 500 ML @ Wide Open IV. 500 / 500 [facility] Rx#:[id number] Oral 280 / 280 600 / 600 Output: Urine 1275 / 1275 350 / 350 Other: Date of Last Bowel Movement 03/21/18 03/21/18 Narrative: GENERAL: This is a well-nourished, well-developed patient, in no apparent distress. CARDIOVASCULAR: Normal rate and regular rhythm without murmurs, gallops, or rubs. RESPIRATORY: Diminished breath sounds bilaterally at the bases. Otherwise clear to auscultation. GASTROINTESTINAL: Abdomen soft, some suprapubic tenderness. Normoactive bowel sounds. MUSCULOSKELETAL: Extremities without cyanosis, or edema. NEURO: Alert & Oriented x4 to person, place, time, situation. Bilateral lower extremity weakness 3 out of 5. Rest of major muscle groups 5 out of 5. PSYCH: Appropriate mood and affect. - Urinary Catheter Management Indwelling Urethral Catheter Cath placed during this visit: yes Reason for continuing: Acute urinary retention Insertion date: 03/16/18 Results - Labs CBC & Chem 7: 03/16/18 05:15 03/23/18 05:28 Laboratory Results - last 24 hr 03/22/18 03/22/18 03/23/18 16:57 20:15 03:53 Sodium Potassium Chloride Carbon Dioxide Anion Gap BUN Creatinine Estimated GFR POC Glucose 212 H 242 H 230 H Random Glucose Calcium 03/23/18 03/23/18 03/23/18 05:28 08:08 11:48 Sodium 135 L Potassium 3.8 Chloride 101 Carbon Dioxide 25.4 Anion Gap 9 BUN 18 Creatinine 1.39 H Estimated GFR 47 L POC Glucose 163 H 235 H Random Glucose 192 H Calcium 8.3 L Assessment and Plan - Assessment (1) Hypertensive urgency Code(s): I16.0 - Hypertensive urgency Status: Acute - Plan 62-year-old female with: R intraparenchymal hemorrhage with intraventricular extension. Neurochecks every hour to monitor for evidence of hydrocephalus Maintain systolic blood pressure less than 140 per neurosurgery recommendations Aspirin on hold MRA brain with no aneurysm. Neurosurgery consult noted, no intervention planned at this time. Need rehab. Malignant hypertension Hyperlipidemia Atorvastatin 40 mg p.o. daily losartan. Lopressor 50 mg twice daily and hydralazine 100. Continue amlodipine. Obesity Advance diet per speech and swallow therapist recommendation. Acute kidney injury Strict intake output, monitor and replete electrodes, follow BN creatinine. Diuresing with Lasix. GFR improving Leukocytosis Possible pneumonia Still requiring oxygen. On Levaquin for empiric antibiotic coverage. Incentive spirometry. Follow progress. Diabetes mellitus Detemir 10 units subcu nightly. Bedside glucose achs with low-dose insulin sliding scale PROPH: SCDs for DVT prophylaxis. Avoid pharmacologic DVT prophylaxis at this time due to intraparenchymal hemorrhage. Stress ulcer prophylaxis is not currently indicated. Discharge Planning: [place]. Awaiting insurance authorization.
[2018-03-23] MEDS: Insulin Detemir Inj 1,000 UNIT/10 ML Vial SQ SCH (20:53)
[2018-03-24] MEDS: Insulin NovoLIN Regular Correctional Sugar Inj SQ SCH ×5 (03:09→21:46)
[2018-03-24 07:03] LABS: Calcium 8.6 mg/dL (8.5-10.1); Carbon Dioxide 26.8 meq/L (21.0-32.0); Potassium 3.7 meq/L (3.5-5.1)
[2018-03-24] MEDS: amLODIPine 10 MG Tablet PO SCH (08:21)
[2018-03-24] MEDS: Metoprolol Tartrate 50 MG Tablet PO SCH ×2 (08:21→21:32)
--- NOTE | 2018-03-24 11:18 | P.PNIM ---
Subjective Interval history: Patient reports she is feeling okay. Had issues with urinary retention last night and a Alvarez was placed. She denies suprapubic pain. No fevers or chills. Physical Exam Vital signs: Vital Signs 03/23/18 12:00 03/23/18 16:00 03/23/18 20:00 Temperature 97.6 F 98.0 F 98.1 F Pulse Rate 85 88 86 Respiratory Rate 12 18 18 Blood Pressure 131/62 152/73 H 151/82 H Pulse Oximetry 93 L 91 L 95 03/23/18 21:45 03/24/18 00:00 03/24/18 04:00 Temperature 98.5 F 98.4 F Pulse Rate 82 75 Respiratory Rate 18 18 18 Blood Pressure 149/86 H 173/79 H Pulse Oximetry 95 95 03/24/18 04:08 03/24/18 07:00 03/24/18 08:00 Temperature 97.9 F Pulse Rate 83 Respiratory Rate 20 12 18 Blood Pressure 150/80 H Pulse Oximetry 92 L 03/24/18 10:59 Temperature Pulse Rate Respiratory Rate Blood Pressure Pulse Oximetry 92 L Intake & Output 03/23/18 03/24/18 03/24/18 18:59 06:59 18:59 Intake Total 150 / 150 Output Total 1250 / 1250 Balance 150 / 150 -1250 / -1250 Weight 71.6 kg Intake: IV 150 / 150 Levaquin 750 mg Premix Inj 150 150 / 150 ML @ 150 mls/hr IV.SIG Q48H [facility] Rx#:[id number] Output: Urine 400 / 400 Urine Amount (Catheter) 850 / 850 Indwelling Urethral Catheter 850 / 850 Other: # Voids 4 Date of Last Bowel Movement 03/21/18 03/21/18 03/23/18 Narrative: GENERAL: This is a well-nourished, well-developed patient, in no apparent distress. CARDIOVASCULAR: Normal rate and regular rhythm without murmurs, gallops, or rubs. RESPIRATORY: Diminished breath sounds bilaterally at the bases. Otherwise clear to auscultation. GASTROINTESTINAL: Abdomen soft, some suprapubic tenderness. Normoactive bowel sounds. MUSCULOSKELETAL: Extremities without cyanosis, or edema. NEURO: Alert & Oriented x4 to person, place, time, situation. Bilateral lower extremity weakness 3 out of 5. Rest of major muscle groups 5 out of 5. PSYCH: Appropriate mood and affect. - Urinary Catheter Management Indwelling Urethral Catheter Cath placed during this visit: yes Reason for continuing: Acute urinary retention Insertion date: 03/24/18 Insertion time: 01:15 Results - Labs CBC & Chem 7: 03/16/18 05:15 03/24/18 06:22 Laboratory Results - last 24 hr 03/23/18 03/23/18 03/23/18 11:48 17:08 20:45 Sodium Potassium Chloride Carbon Dioxide Anion Gap BUN Creatinine Estimated GFR POC Glucose 235 H 203 H 208 H Random Glucose Calcium 03/24/18 03/24/18 03/24/18 03:07 06:22 07:28 Sodium 138 Potassium 3.7 Chloride 102 Carbon Dioxide 26.8 Anion Gap 9 BUN 12 Creatinine 1.11 H Estimated GFR 61 L POC Glucose 126 H 105 Random Glucose 114 H Calcium 8.6 Assessment and Plan - Assessment (1) Hypertensive urgency Code(s): I16.0 - Hypertensive urgency Status: Acute - Plan 62-year-old female with: R intraparenchymal hemorrhage with intraventricular extension. Neurochecks every hour to monitor for evidence of hydrocephalus Maintain systolic blood pressure less than 140 per neurosurgery recommendations Aspirin on hold MRA brain with no aneurysm. Neurosurgery consult noted, no intervention planned at this time. Need rehab. Malignant hypertension Hyperlipidemia Atorvastatin 40 mg p.o. daily losartan. Lopressor 50 mg twice daily and hydralazine 100. Continue amlodipine. Obesity Advance diet per speech and swallow therapist recommendation. Acute kidney injury Strict intake output, monitor and replete electrodes, follow BN creatinine. Diuresed with Lasix. GFR improving Leukocytosis Possible pneumonia Treated with Levaquin. Discontinue antibiotics today. Continue to monitor. Incentive spirometry. Diabetes mellitus Detemir 10 units subcu nightly. Bedside glucose achs with low-dose insulin sliding scale PROPH: SCDs for DVT prophylaxis. Avoid pharmacologic DVT prophylaxis at this time due to intraparenchymal hemorrhage. Stress ulcer prophylaxis is not currently indicated. Discharge Planning: [place]. Awaiting insurance authorization.
[2018-03-24 13:28] LABS: Hemoglobin A1c 8.1 % (4.3-6.0)
[2018-03-24] MEDS: Acetaminophen 325 MG Tablet PO PRN (16:25)
[2018-03-24] MEDS: Insulin Detemir Inj 1,000 UNIT/10 ML Vial SQ SCH (21:33)
[2018-03-25] MEDS: Insulin NovoLIN Regular Correctional Sugar Inj SQ SCH ×4 (04:53→18:25)
[2018-03-25] MEDS: amLODIPine 10 MG Tablet PO SCH (09:30)
[2018-03-25] MEDS: Metoprolol Tartrate 50 MG Tablet PO SCH (09:31)
--- NOTE | 2018-03-25 11:50 | P.PNIM ---
Subjective Interval history: 03/17: 62-year-old -[place] female with past medical history of hypertension, hyperlipidemia, diabetes who presented to [facility] with 3-day history of headache and dizziness. Her blood pressure was in 220/ 110. She says that she had not been taking her antihypertensive medications because she had run out. She was admitted and treated for hypertensive emergency with Cardene drip. On 03/16 she experienced confusion and CT brain was obtained which demonstrated right intraparenchymal hemorrhage with intraventricular extension. Dr. Mejia discussed case with neurosurgery who recommended holding ASA, BP control <140 mmHg, CTA. Patient will need frequent neurochecks for hydrocephalus as well as monitoring of airway protection, and therefore was transferred to [facility]. She complains of headache, nausea. 03/18: Dropped O2 sats last night requiring supplemental O2. Received Lasix after chest x-ray revealed pulmonary edema with possible infiltrates. This morning patient is on facemask breathing comfortably. Awake and alert, moving all 4 extremities and following commands. She was started on Levaquin yesterday for UTI. 03/19: Remains afebrile. Blood pressure control acceptable. Still ahead on free water, continue gentle diuresis. Right lower lung field infiltrate is worrisome, suspect just water follow closely for fever or leukocytosis. 03/20: Breathing comfortably on nasal cannula while lying flat. Blood pressure control acceptable, will convert to an outpatient regimen. Off Cardene drip for 24 hours. Continues to fall back to sleep easily. 9-13 Patient reports she is feeling okay except for the headache. Discussed with RN. Tylenol is helping. 9-14 Patient reports she is feeling weak. Discussed with RN. She is having urinary retention. She complains of bladder discomfort. 9-15 Patient reports she is feeling okay today. No new neurological issues. 9-16 Patient reports she is feeling okay. Had issues with urinary retention last night and a [place]and was placed. She denies suprapubic pain. No fevers or chills. 9-17 STILL HAS [facility] CATHETER IN PLACE WILL ADJUST MEDICATIONS DW RN AND PT AND CM POSSIBLE TO [facility] PENDING ACCEPTANCE Physical Exam Vital signs: Vital Signs 03/24/18 16:00 03/24/18 20:00 03/25/18 00:00 Temperature 98.6 F 98.0 F 98.5 F Pulse Rate 68 79 82 Respiratory Rate 18 18 18 Blood Pressure 130/83 137/63 165/79 H Pulse Oximetry 92 L 95 95 03/25/18 02:39 03/25/18 04:00 03/25/18 04:22 Temperature 98.3 F Pulse Rate 80 Respiratory Rate 18 18 18 Blood Pressure 140/67 Pulse Oximetry 95 03/25/18 08:00 03/25/18 08:51 Temperature 98.1 F Pulse Rate 78 Respiratory Rate 17 Blood Pressure 168/78 H Pulse Oximetry 93 L 93 L Intake & Output 03/24/18 03/25/18 03/25/18 18:59 06:59 18:59 Intake Total 720 / 720 Output Total 1000 / 1000 Balance 720 / 720 -1000 / -1000 Weight 70.9 kg Intake: Oral 720 / 720 Output: Urine 1000 / 1000 Other: # Voids 650 # Incontinent Voids 1 Date of Last Bowel Movement 03/23/18 03/23/18 Narrative: GENERAL: This is a well-nourished, well-developed patient, in no apparent distress. CARDIOVASCULAR: Normal rate and regular rhythm without murmurs, gallops, or rubs. RESPIRATORY: Diminished breath sounds bilaterally at the bases. Otherwise clear to auscultation. GASTROINTESTINAL: Abdomen soft, some suprapubic tenderness. Normoactive bowel sounds. MUSCULOSKELETAL: Extremities without cyanosis, or edema. NEURO: Alert & Oriented x4 to person, place, time, situation. Bilateral lower extremity weakness 3 out of 5. Rest of major muscle groups 5 out of 5. PSYCH: Appropriate mood and affect. - Urinary Catheter Management Indwelling Urethral Catheter Cath placed during this visit: yes Reason for continuing: Acute urinary retention Insertion date: 03/24/18 Insertion time: 01:15 Results - Labs CBC & Chem 7: 03/16/18 05:15 03/24/18 06:22 Laboratory Results - last 24 hr 03/23/18 03/24/18 03/24/18 15:15 16:32 21:32 POC Glucose 163 H 199 H Hemoglobin A1c 8.1 H 03/25/18 03/25/18 03:16 07:21 POC Glucose 146 H 150 H Hemoglobin A1c - Imaging ITS Impressions Head CT 03/16/18 00:00 CONCLUSION: 1. Acute intraparenchymal hemorrhage involving the right parietal lobe with extension into the ventricles. There is mild prominence of the ventricles without evidence of sulcal effacement or midline shift at this time. These findings were referred to the referring physician Dr. Mejia at 4:40 PM. . Head MRA 03/17/18 00:00 CONCLUSION: 1. Limited exam due to motion. No obvious aneurysm but very limited study Chest X-Ray 03/18/18 00:00 CONCLUSION: Development of basilar airspace consolidation and pleural effusions since March 16. Differential diagnosis includes infection and edema. Venous Doppler Study 03/18/18 02:43 CONCLUSION: 1. Negative deep venous thrombosis. Assessment and Plan - Assessment (1) Hypertensive urgency Code(s): I16.0 - Hypertensive urgency Status: Acute - Plan 62-year-old female with: R intraparenchymal hemorrhage with intraventricular extension. Neurochecks every hour to monitor for evidence of hydrocephalus---STABLE Maintain systolic blood pressure less than 140 per neurosurgery recommendations Aspirin on hold MRA brain with no aneurysm. Neurosurgery consult noted, no intervention planned at this time. Need rehab. Malignant hypertension Hyperlipidemia Atorvastatin 40 mg p.o. daily losartan. Lopressor 50 mg twice daily and hydralazine 100. Continue amlodipine. Obesity Advance diet per speech and swallow therapist recommendation. Acute kidney injury Strict intake output, monitor and replete electrodes, follow BN creatinine. Diuresed with Lasix. GFR improving Leukocytosis Possible pneumonia Treated with Levaquin. Discontinue antibiotics today. Continue to monitor. Incentive spirometry. Diabetes mellitus Detemir 10 units subcu nightly. Bedside glucose achs with low-dose insulin sliding scale PROPH: SCDs for DVT prophylaxis. Avoid pharmacologic DVT prophylaxis at this time due to intraparenchymal hemorrhage. Stress ulcer prophylaxis is not currently indicated. Discharge Planning: [place]. Awaiting insurance authorization. Code Status: FULL CODE Discussed Condition With: RN AND PT AND CM Discharge Planning: PENDING ACCEPTANCE OF INSURANCE FOR PLACEMENT
--- NOTE | 2018-03-25 15:36 | P.DS ---
Date of admission: 03/18/18 15:40 Primary care physician: Shital Olson MD Attending physician on discharge: Adrian Mane Anticipated date of discharge: 03/25/18 Brief History from admission: Ms. Pena is a pleasant 62 year old female with a history of hypertension who presented to the ED on 03/14/2018 due to 3 day duration of headache and some dizziness. Patient appears very drowsy because she took a Benadryl. However, she is able to give appropriate answers. She admits not taking any BP meds for about two weeks. She denies any chest pain, shortness of breath, fever, chills. Denies any changes in bowel or bladder habits. She was started on some of her home meds in the ED. PMH: Hypertension PSH: No major surgery in the past Social history: Does not smoke. Drinks socially. Family history: No family history of heart disease, Alzheimer's or Parkinson's. Patient update on day of discharge: 03/17: 62-year-old -[place] female with past medical history of hypertension, hyperlipidemia, diabetes who presented to [facility] with 3-day history of headache and dizziness. Her blood pressure was in 220/ 110. She says that she had not been taking her antihypertensive medications because she had run out. She was admitted and treated for hypertensive emergency with Cardene drip. On 03/16 she experienced confusion and CT brain was obtained which demonstrated right intraparenchymal hemorrhage with intraventricular extension. Dr. Mejia discussed case with neurosurgery who recommended holding ASA, BP control <140 mmHg, CTA. Patient will need frequent neurochecks for hydrocephalus as well as monitoring of airway protection, and therefore was transferred to [facility]. She complains of headache, nausea. 03/18: Dropped O2 sats last night requiring supplemental O2. Received Lasix after chest x-ray revealed pulmonary edema with possible infiltrates. This morning patient is on facemask breathing comfortably. Awake and alert, moving all 4 extremities and following commands. She was started on Levaquin yesterday for UTI. 03/19: Remains afebrile. Blood pressure control acceptable. Still ahead on free water, continue gentle diuresis. Right lower lung field infiltrate is worrisome, suspect just water follow closely for fever or leukocytosis. 03/20: Breathing comfortably on nasal cannula while lying flat. Blood pressure control acceptable, will convert to an outpatient regimen. Off Cardene drip for 24 hours. Continues to fall back to sleep easily. 9-13 Patient reports she is feeling okay except for the headache. Discussed with RN. Tylenol is helping. 9-14 Patient reports she is feeling weak. Discussed with RN. She is having urinary retention. She complains of bladder discomfort. 9-15 Patient reports she is feeling okay today. No new neurological issues. 9-16 Patient reports she is feeling okay. Had issues with urinary retention last night and a Durand was placed. She denies suprapubic pain. No fevers or chills. 9-17 STILL HAS [facility] CATHETER IN PLACE WILL ADJUST MEDICATIONS DW RN AND PT AND CM POSSIBLE TO [facility] PENDING ACCEPTANCE ACCEPTED AT [facility] TODAY DS: Diagnosis - Discharge Diagnosis (1) Hypertensive urgency Status: Acute DS: Medications - Discharge Medications Prescriptions: amlodipine 10 mg PO DAILY #90 tab hydrochlorothiazide 25 mg PO DAILY #90 tab DS: Summary Hospital Course: 03/17: 62-year-old -[place] female with past medical history of hypertension, hyperlipidemia, diabetes who presented to [facility] with 3-day history of headache and dizziness. Her blood pressure was in 220/ 110. She says that she had not been taking her antihypertensive medications because she had run out. She was admitted and treated for hypertensive emergency with Cardene drip. On 03/16 she experienced confusion and CT brain was obtained which demonstrated right intraparenchymal hemorrhage with intraventricular extension. Dr. Mejia discussed case with neurosurgery who recommended holding ASA, BP control <140 mmHg, CTA. Patient will need frequent neurochecks for hydrocephalus as well as monitoring of airway protection, and therefore was transferred to [facility]. She complains of headache, nausea. 03/18: Dropped O2 sats last night requiring supplemental O2. Received Lasix after chest x-ray revealed pulmonary edema with possible infiltrates. This morning patient is on facemask breathing comfortably. Awake and alert, moving all 4 extremities and following commands. She was started on Levaquin yesterday for UTI. 03/19: Remains afebrile. Blood pressure control acceptable. Still ahead on free water, continue gentle diuresis. Right lower lung field infiltrate is worrisome, suspect just water follow closely for fever or leukocytosis. 03/20: Breathing comfortably on nasal cannula while lying flat. Blood pressure control acceptable, will convert to an outpatient regimen. Off Cardene drip for 24 hours. Continues to fall back to sleep easily. 9-13 Patient reports she is feeling okay except for the headache. Discussed with RN. Tylenol is helping. 9-14 Patient reports she is feeling weak. Discussed with RN. She is having urinary retention. She complains of bladder discomfort. 9-15 Patient reports she is feeling okay today. No new neurological issues. 9-16 Patient reports she is feeling okay. Had issues with urinary retention last night and a Durand was placed. She denies suprapubic pain. No fevers or chills. 9-17 STILL HAS [facility]UR[facility] CATHETER IN PLACE WILL ADJUST MEDICATIONS DW RN AND PT AND CM POSSIBLE TO [facility] PENDING ACCEPTANCE ACCEPTED AT [facility] - Time Spent with Patient Total time spent providing and/or coordinating discharge services: Greater than 30 minutes - Quality: VTE Deep Vein Thrombosis/Pulmonary Embolism Present on Admission: Yes Exam Vital signs: Vital Signs 03/24/18 16:00 03/24/18 20:00 03/25/18 00:00 Temperature 98.6 F 98.0 F 98.5 F Pulse Rate 68 79 82 Respiratory Rate 18 18 18 Blood Pressure 130/83 137/63 165/79 H Pulse Oximetry 92 L 95 95 03/25/18 02:39 03/25/18 04:00 03/25/18 04:22 Temperature 98.3 F Pulse Rate 80 Respiratory Rate 18 18 18 Blood Pressure 140/67 Pulse Oximetry 95 03/25/18 08:00 03/25/18 08:51 03/25/18 12:00 Temperature 98.1 F 97.8 F Pulse Rate 78 82 Respiratory Rate 17 17 Blood Pressure 168/78 H 153/81 H Pulse Oximetry 93 L 93 L 93 L Intake & Output 03/24/18 03/25/18 03/25/18 18:59 06:59 18:59 Intake Total 720 / 720 Output Total 1000 / 1000 Balance 720 / 720 -1000 / -1000 Weight 70.9 kg Intake: Oral 720 / 720 Output: Urine 1000 / 1000 Other: # Voids 650 # Incontinent Voids 1 Date of Last Bowel Movement 03/23/18 03/23/18 Narrative: GENERAL: This is a well-nourished, well-developed patient, in no apparent distress. CARDIOVASCULAR: Normal rate and regular rhythm without murmurs, gallops, or rubs. RESPIRATORY: Diminished breath sounds bilaterally at the bases. Otherwise clear to auscultation. GASTROINTESTINAL: Abdomen soft, some suprapubic tenderness. Normoactive bowel sounds. MUSCULOSKELETAL: Extremities without cyanosis, or edema. NEURO: Alert & Oriented x4 to person, place, time, situation. Bilateral lower extremity weakness 3 out of 5. Rest of major muscle groups 5 out of 5. PSYCH: Appropriate mood and affect. Results Procedures completed during hospitalization: NONE Completed studies during hospitalization: Laboratory Results CBC w Diff Auto diff final 03/16/18 05:15 WBC 15.4 th/mm3 (4.0-11.0) H 03/16/18 05:15 RBC 4.29 mil/mm3 (4.00-5.30) 03/16/18 05:15 Hgb 13.1 gm/dL (11.6-15.3) 03/16/18 05:15 POC Hgb (Calc) ND 03/14/18 10:43 Hct 39.2 % (35.0-46.0) 03/16/18 05:15 POC Hct ND 03/14/18 10:43 MCV 91.4 fL (80.0-100.0) 03/16/18 05:15 MCH 30.6 pg (27.0-34.0) 03/16/18 05:15 MCHC 33.4 % (32.0-36.0) 03/16/18 05:15 RDW 12.0 % (11.6-17.2) 03/16/18 05:15 Plt Count 306 th/mm3 (150-450) 03/16/18 05:15 MPV 8.3 fL (7.0-11.0) 03/16/18 05:15 Neut % (Auto) 90.0 % (16.0-70.0) H 03/16/18 05:15 Lymph % (Auto) 7.5 % (9.0-44.0) L 03/16/18 05:15 [place] % (Auto) 2.0 % (0.0-8.0) 03/16/18 05:15 Eos % (Auto) 0.0 % (0.0-4.0) 03/16/18 05:15 Baso % (Auto) 0.5 % (0.0-2.0) 03/16/18 05:15 Neut # (Auto) 13.8 th/mm3 (1.8-7.7) H 03/16/18 05:15 Lymph # (Auto) 1.2 th/mm3 (1.0-4.8) 03/16/18 05:15 [place] # (Auto) 0.3 th/mm3 (0.0-0.9) 03/16/18 05:15 Eos # (Auto) 0.0 th/mm3 (0.0-0.4) 03/16/18 05:15 Baso # (Auto) 0.1 th/mm3 (0.0-0.2) 03/16/18 05:15 WBC Differential . 03/16/18 05:15 Differential Comment . 03/16/18 05:15 POC Sodium 139 mmol/L (137-144) 03/14/18 10:43 Sodium 138 meq/L (136-145) 03/24/18 06:22 POC Potassium 4.4 mmol/L (3.6-5.0) 03/14/18 10:43 Potassium 3.7 meq/L (3.5-5.1) 03/24/18 06:22 POC Chloride 103 mmol/L (102-111) 03/14/18 10:43 Chloride 102 meq/L (98-107) 03/24/18 06:22 Carbon Dioxide 26.8 meq/L (21.0-32.0) 03/24/18 06:22 Anion Gap 9 meq/L (5-15) 03/24/18 06:22 POC BUN 31 mg/dL (5-21) H 03/14/18 10:43 BUN 12 mg/dL (7-18) 03/24/18 06:22 Creatinine 1.11 mg/dL (0.50-1.00) H 03/24/18 06:22 POC Creatinine 1.4 mg/dL (0.6-1.3) H 03/14/18 10:43 Estimated GFR 61 mL/min (>89) L 03/24/18 06:22 POC Glucose 189 mg/dl (68-110) H 03/25/18 11:45 Random Glucose 114 mg/dL (74-106) H 03/24/18 06:22 Hemoglobin A1c 8.1 % (4.3-6.0) H 03/23/18 15:15 Calcium 8.6 mg/dL (8.5-10.1) 03/24/18 06:22 Magnesium 2.1 mg/dL (1.5-2.5) 03/16/18 05:15 Total Bilirubin 0.7 mg/dL (0.2-1.0) 03/14/18 10:43 AST 55 U/L (15-37) H 03/14/18 10:43 ALT 28 U/L (10-53) 03/14/18 10:43 Alkaline Phosphatase 88 U/L (45-117) 03/14/18 10:43 Ammonia 16 mcmol/L (11-32) 03/16/18 17:12 Total Creatine Kinase 561 U/L (26-192) H 03/18/18 03:25 CK-MB (CK-2) 2.2 ng/mL (0.5-3.6) 03/18/18 03:25 CK-MB (CK-2) % 0.4 % (0.0-4.0) 03/18/18 03:25 Troponin I 0.03 ng/mL (0.02-0.05) 03/16/18 05:15 B-Natriuretic Peptide 103 pg/mL (0-100) H 03/18/18 08:33 Total Protein 8.1 g/dL (6.4-8.2) 03/14/18 10:43 Albumin 3.9 g/dL (3.4-5.0) 03/14/18 10:43 Vitamin B12 1036 pg/mL (193-986) H 03/16/18 17:12 TSH 1.820 uIU/mL (0.358-3.740) 03/16/18 17:12 Urine Color Yellow (Yellw/Straw) 03/17/18 13:30 Urine Clarity Clear (Clear) 03/17/18 13:30 Urine pH 5.0 (5.0-8.5) 03/17/18 13:30 Ur Specific Benge 1.020 (1.002-1.035) 03/17/18 13:30 Urine Protein 100 mg/dL (Neg-Trace) H 03/17/18 13:30 Urine Glucose (UA) 50 mg/dL (Negative) 03/17/18 13:30 Urine Ketones Trace mg/dL (Negative) H 03/17/18 13:30 Urine Occult Blood Small (Negative) H 03/17/18 13:30 Urine Nitrate Negative (Negative) 03/17/18 13:30 Urine Bilirubin Negative (Negative) 03/17/18 13:30 Urine Urobilinogen Less than 2 mg/dL (Less than 2) 03/17/18 13:30 Ur Leukocyte Esterase Moderate (Negative) H 03/17/18 13:30 Urine RBC 1 /hpf (0-3) 03/17/18 13:30 Urine WBC 13 /hpf (0-5) H 03/17/18 13:30 Ur Squamous Epith Cells 1 /hpf (0-5) 03/17/18 13:30 Amorphous Sediment Moderate /hpf (None) H 03/15/18 18:00 Hyaline Casts 3 /lpf (0-3) 03/17/18 13:30 Urine Mucus Few /lpf (Occasional) H 03/17/18 13:30 Micro UA Comment Cath-culture ind 03/17/18 13:30 Ur Microscopic Review Not Reportable 03/17/18 13:30 Urine Culture Comments Cath-cult indicated 03/17/18 13:30 Nasal Screen MRSA (PCR) Not detected (Negative) 03/17/18 00:[address] 03/16/18 00:00 CONCLUSION: 1. Acute intraparenchymal hemorrhage involving the right parietal lobe with extension into the ventricles. There is mild prominence of the ventricles without evidence of sulcal effacement or midline shift at this time. These findings were referred to the referring physician Dr. Mejia at 4:40 PM. . Head MRA 03/17/18 00:00 CONCLUSION: 1. Limited exam due to motion. No obvious aneurysm but very limited study Chest X-Ray 03/18/18 00:00 CONCLUSION: Development of basilar airspace consolidation and pleural effusions since March 16. Differential diagnosis includes infection and edema. Venous Doppler Study 03/18/18 02:43 CONCLUSION: 1. Negative deep venous thrombosis. Labs on day of discharge: Labs from last 24 hours 03/25/18 03/25/18 03/25/18 11:45 07:21 03:16 POC Glucose 189 H 150 H 146 H 03/24/18 03/24/18 21:32 16:32 POC Glucose 199 H 163 H - Impressions ITS Impressions Head CT 03/16/18 00:00 CONCLUSION: 1. Acute intraparenchymal hemorrhage involving the right parietal lobe with extension into the ventricles. There is mild prominence of the ventricles without evidence of sulcal effacement or midline shift at this time. These findings were referred to the referring physician Dr. Mejia at 4:40 PM. . Head MRA 03/17/18 00:00 CONCLUSION: 1. Limited exam due to motion. No obvious aneurysm but very limited study Chest X-Ray 03/18/18 00:00 CONCLUSION: Development of basilar airspace consolidation and pleural effusions since March 16. Differential diagnosis includes infection and edema. Venous Doppler Study 03/18/18 02:43 CONCLUSION: 1. Negative deep venous thrombosis. Discharge Plan - Discharge Disposition Patient Disposition: 64 Re[facility] Inpatient - Discharge Condition Condition: Stable - Discharge Order Discharge Orders: Discharge Order (Routine); Ordered 03/14/18 Ordered By: Ruba Mcqueen - Discharge Details Anticipated Discharge Date: 03/25/18 Discharge Comment: DC TO INPT REHAB TODAY - Physicians Team Primary Care Provider: Shital Olson Attending Provider: Adrian Mane Other Providers: Erika Quinn MD ; Lauren Chong MD ; Gavin Amaro MD
[2018-03-25] MEDS ORDERED: hydroCHLOROthiazide 25 MG Tablet PO SCH (18:00)
== END 2018-03-25 19:42 ==
LOC: PHED 09:56 → PHEDA 09:56 → PHICU 14:59 → N03 03-17 00:18 → N05 03-22 16:25
PROVIDERS: ADMIT Hospitalist; ATTEND Hospitalist